=== PATIENT | female | born 1935 | race Caucasian/White ===

== ENCOUNTER 2019-09-09 07:15 | Inpatient (IN) | payer MEDICARE, SELFPAY ==
[2019-09-09] VITALS (29 sets, daily range): BP systolic 99–132; BP diastolic 52–74; PULSE 65–100; RESP 18–37; TEMP 36.4–37.1; O2SAT 69–100; BMI 17.6
--- NOTE | ~2019-09-09 | XR_ITS ---
EXAMINATION: XR chest 1V EXAM DATE: 09/09/2019 09:59 INDICATION: Cough, low oxygen saturation. TECHNIQUE: Frontal and lateral projections of the chest obtained and reviewed. There is no prior yanet dy for comparison. FINDINGS: There is cardiomegaly and pulmonary vascular congestion. Moderate hyperinflation. Right si xth rib fracture laterally, age indeterminate. No confluent consolidation, pneumothorax or pleural ef fusion suspected. The bones are osteopenic. There are bony degenerative changes. Significant thoraco lumbar scoliosis. IMPRESSION: 1. Cardiomegaly, congestion. 2. Moderate hyperinflation. 3. Age-indeterminate right sixth rib fracture. Reviewed, dictated and finalized at location B. CAL INSTRUMENT MAKER OR REPAIRER
--- NOTE | ~2019-09-09 | CT_ITS ---
EXAMINATION: CT brain wo con EXAM DATE: 09/09/2019 09:57 INDICATION: Confusion, general weakness. TECHNIQUE: Spiral CT of the head was performed without contrast. Axial, coronal and sagittal images were reviewed. The dose-length product (DLP) for this examination was 681.00 mGy-cm. The exposure w as tailored according to patient size, and iterative reconstruction (ASIR) was used as additional dos e reduction technique. There is no prior study for comparison. FINDINGS: There is no acute intraparenchymal hemorrhage. No evidence of intraparenchymal brain mass lesion. No evidence of acute infarction. Please note that initial head CT has limited sensitivity f or small or acute infarctions. There is moderate periventricular and subcortical hypodensity, nonspec ific but probably related to small vessel ischemic disease. There is mild prominence of the sulci a nd ventricles related to cerebral atrophy. There is intracranial carotid arteriosclerosis. There a re no extra-axial collections. There is no mass effect or midline shift. Patient has had bilateral ocular lens surgery. Soft tissue is unremarkable. Small amount of fluid in the left maxillary sinus and mild to moderate ethmoid mucoperiosteal thicken ing. Mastoid air cells are well-aerated. IMPRESSION: 1. No acute intracranial findings. 2. Chronic age related findings. Reviewed, dictated and finalized at location B. MAKER
--- NOTE | 2019-09-09 07:36 | ECG_ITS ---
Measurements Intervals [place] Rate: 85 P: 95 VT: 223 QRS: 69 QRSD: 95 T: 68 QT: 355 QTc: 423 Interpretive Statements SINUS RHYTHM WITH FIRST DEGREE AV BLOCK LOW QRS VOLTAGE IN LIMB LEADS ANTEROSEPTAL INFARCT, AGE INDETERMINATE BASELINE ARTIFACT- I, III, AVL, AVF, V2, V5 ABNORMAL ECG Electronically Signed On 09-09-2019 7:59:44 SWABBER by Rashad Hoyos D.O.
--- NOTE | 2019-09-09 07:41 | ED.GENADULT ---
HPI - General Adult General Chief complaint: Weakness Stated complaint: Weakness Time Seen by Provider: 09/09/19 07:41 Source: patient, family and EMS Mode of arrival: EMS Limitations: clinical condition History of Present Illness HPI narrative: Patient is an 84-year-old female who presents for evaluation of cough and dehydration. Patient is currently alert and oriented to person, place, to time. Patient's research project manager feels like she is more confused than normal. Patient denies any pain in the ER. Patient has had a productive cough yesterday, has a decreased oral intake per research project manager. States that she has a history of COPD, and has had a little bit of shortness of breath, although patient denies this in the room. Patient has not had any fever. No vomiting. No diarrhea. Patient denies any abdominal pain, no dysuria. Patient has had increased weakness, difficulty with ambulation more than normal. Related Data Home Medications Medication Instructions Recorded Confirmed alendronate 70 mg tablet 70 mg PO WEEKLY 08/14/19 bimatoprost 0.01 % eye drops 1 drop EACH EYE QPM 08/14/19 budesonide 0.5 mg/2 mL suspension 0.5 mg INHALATION BID ml 08/14/19 for nebulization cholecalciferol (vitamin D3) 2,000 2,000 unit PO DAILY 08/14/19 unit tablet ipratropium bromide 0.02 % 2.5 ml INHALATION BID ml 08/14/19 solution for inhalation prednisone 10 mg tablet 20 mg PO .2xweek tablet 08/14/19 Allergies Allergy/AdvReac Type Severity Reaction Status Date / Time No Known Allergies Allergy Unverified 09/09/19 07:32 Review of Systems Review of Systems: Narrative: CONSTITUTIONAL: Denies fever, chills, or sweats. EYES: Denies visual changes, redness, or discharge. ENT: Denies rhinorrhea, reports some congestion, denies sore throat, or otalgia. CARDIOVASCULAR: Denies chest pain, palpitations, or edema. RESPIRATORY: Reports cough, patient denies shortness of breath GASTROINTESTINAL: Denies abdominal pain, nausea, vomiting, or diarrhea. GENITOURINARY: Denies dysuria or hematuria. SKIN: Denies rash or itching. MUSCULOSKELETAL: Denies back pain, joint pain, or myalgia. NEUROLOGIC: Denies headache, numbness, reports some generalized weakness PSYCHIATRIC: Patient's research project manager states she has been more anxious than normal [facility] Past Medical History Medical History Anxiety Colon cancer COPD (chronic obstructive pulmonary disease) Depression High cholesterol Osteoporosis Surgical History Surgical History History of colon surgery Family History Family History (Updated 08/14/19 @ 11:40 by Joleen Whitt [facility]) Mother Cerebrovascular accident Father Heart disease Social History Social History Smoking status: Former smoker Alcohol intake: never Gender identity (if verbalized by the patient): Female Exam Narrative: Exam Narrative: GENERAL: Awake alert, thin, malnourished. HEAD: Normocephalic, atraumatic. EYES: PERRLA and EOMI. ENT: Nares clear, no rhinorrhea or epistaxis. Mucous membranes dry NECK: Supple. CHEST: Coarse bilaterally, decreased aeration, slight wheezing appreciated on the left, tachypneic, moderate respiratory distress HEART: Regular rate and rhythm. No murmur heard. Normal peripheral pulses. ABDOMEN: Scaphoid, nontender, nondistended, normal active bowel sounds. EXTREMITIES: Normal range of motion. No edema. SKIN: Warm, dry, no rash. NEURO: No focal deficits. Alert and oriented x3, EOMs intact without nystagmus. No facial droop/asymmetry noted bilaterally. Grimace intact. Intact sensation in face. Hearing intact bilaterally. Shoulder shrug intact. Strength 5/5 bilateral upper extremities. Strength 5/5 bilateral lower extremities. Reflexes 2+ patellar. Ambulatory exam deferred. Course Vital Signs Vital signs: Vital Signs [place]
[2019-09-09 08:18] LABS: Basophils Percent Auto 0.6 % (0.2-1.2); Hematocrit 36.9 % (37.0-47.0); Hemoglobin 10.6 g/dL (12.0-15.0); Immature Granulocyte Absolute 0.02 K/mm3 (0.00-0.031); Immature Granulocyte Percent A 0.4 % (0-0.5); Lymphocytes Absolute Auto 0.44 K/mm3 (0.9-3.2); Lymphocytes Percent Auto 9.3 % (18.3-44.2); Mean Corpuscular HGB Conc 28.7 g/dl (32-36); Mean Corpuscular Hemoglobin 28.8 pg (26-34); Mean Corpuscular Volume 100.3 fl (80-100); Mean Platelet Volume 9.4 fl (7.4-10.4); Monocytes Absolute Auto 0.4 K/mm3 (0.1-0.6); Monocytes Percent Auto 7.4 % (2.6-8.5); Neutrophils Absolute Auto 3.9 K/mm3 (1.3-6.7); Neutrophils Percent Auto 82.3 % (45.5-73.1); Platelet Count Result 143 k/mm3 (150-375); Red Blood Count 3.68 M/mm3 (4.2-5.4); Red Cell Distribution Width 13.6 % (11.5-14.5); White Blood Count 4.7 K/mm3 (4.5-10.0)
[2019-09-09] MEDS: ALBUTEROL SULFATE NEB 2.5 MG/0.5 ML INH 5 MG INHALATION ×3 (08:20→20:46)
[2019-09-09] MEDS: IPRATROPIUM BR 0.02% INH SOLN 0.5 MG/2.5 ML VIAL 1 MG INHALATION (08:20)
[2019-09-09] MEDS: SODIUM CHLORIDE 0.9% IV 1,000 ML 999 ML IV CONT (08:25)
[2019-09-09 08:30] LABS: Prothrombin Time 12.7 Seconds (11.1-14.7)
[2019-09-09 08:32] LABS: Alveolar/Arterial O2 Gradient 15.9 mmHg; Base Excess ABG 6.8 mEq/l (+/-2.0); Carboxyhemoglobin 0.3 % THb (0-2.0); Fractional Inspired Oxygen 32 %; HCO3 ABG 34.6 mEq/l (22.0-26.0); Oxygen Content ABG 15.3 %vol (16.0-22.0); Oxygen Saturation ABG 98.4 % (95.0-100.0); Oxyhemoglobin 97.4 % THb (90.0-100.0); PO2 ABG 133.2 mmHg (80.0-100.0); PO2 FiO2 Ratio Arterial Blood 4.16 %; Reduced Hemoglobin 2.3 %THb (0-5.0); pH ABG 7.327 (7.350-7.450)
[2019-09-09 08:34] LABS: Device NASAL CANNULA; Modified Allen's Test Pass; PCO2 ABG 67.6 mmHg (35.0-45.0); Site Drawn RIGHT RADIAL
[2019-09-09 08:41] LABS: Blood Urea Nitrogen 31 mg/dL (7-17); Calcium 9.4 mg/dL (8.4-10.2); Carbon Dioxide 39 mmol/L (22-30); Chloride 101 mmol/L (98-107); Estimated CRCL calculation 44 ml/min; Estimated Glomerular Filt Rate > 60; Glucose 134 mg/dL (65-105); Potassium 4.5 mmol/L (3.4-5.0); Sodium 145 mmol/L (137-145)
[2019-09-09] MEDS: methylPREDNISolone SOD SUCC 125 MG VIAL IV PUSH (08:52)
[2019-09-09 08:55] LABS: Troponin I 0.125 ng/mL (0.000-0.034)
[2019-09-09 09:57] LABS: Add Urine Microscopic? YES; Appearance Urine Clear (Clear); Bilirubin Urine Negative (Negative); Blood Urine Negative (Negative); Color Urine Yellow (Yellow); Glucose Urine UA 1+ mg/dL (Negative); Ketones Urine Negative (Negative); Leukocyte Esterase Ur Negative LEU/UL (Negative); Mucus Urine Moderate /lpf; Nitrate Urine Negative (Negative); Protein Urine 1+ mg/dL (Negative); Squamous Epithelial Cell Urine Rare /hpf (Few); Urobilinogen Urine Negative mg/dL (<2.0); WBC Urine 0-3 /hpf
[2019-09-09 10:31] LABS: NT Pro B Type Natriuretic Pept 3050 PG/ML (5-100)
[2019-09-09 10:48] LABS: Alveolar/Arterial O2 Gradient 63.9 mmHg; Base Excess ABG 5.4 mEq/l (+/-2.0); Carboxyhemoglobin 0.2 % THb (0-2.0); Fractional Inspired Oxygen 30 %; Methemoglobin ABG 0.1 %THb (0-1.5); Oxygen Content ABG 14.5 %vol (16.0-22.0); Oxygen Saturation ABG 93.1 % (95.0-100.0); Oxyhemoglobin 92.6 % THb (90.0-100.0); PO2 ABG 73.2 mmHg (80.0-100.0); PO2 FiO2 Ratio Arterial Blood 2.44 %; Reduced Hemoglobin 7.1 %THb (0-5.0); Total Hemoglobin 11.1 g/dL (12.0-18.0); pH ABG 7.321 (7.350-7.450)
[2019-09-09 10:49] LABS: Device NON-INVASIVE VENT; Modified Allen's Test Pass; Non-Invasive Expiratory Pressure 5 CMH2O; Non-Invasive Inspiratory Pressure 10 CMH2O; Non-Invasive Vent Rate 4 /MIN; PCO2 ABG 65.4 mmHg (35.0-45.0); Site Drawn RIGHT RADIAL
--- NOTE | 2019-09-09 11:42 | ADMGEN ---
This patient, Liseth Linder, was admitted to IMU Room 200-01. Patient/family oriented to hospital policies and general routines including ID bracelet, bed and alarms, visiting hours, pain management, procedures, bathroom and other care routines, personal items, smoking policy, room service/diet, and visiting hours. Valuables list has been completed. Information on how to activate the Rapid Response Team has been discussed. Patient/Family are encouraged to report perceived risks to care and to ask questions if they do not understand what they are told or what they should do.
[2019-09-09] MEDS: methylPREDNISolone SOD SUCC 125 MG VIAL 60 MG IV PUSH ×2 (13:28→17:23)
[2019-09-09] MEDS: IPRATROPIUM BR 0.02% INH SOLN 0.5 MG/2.5 ML VIAL INHALATION ×2 (14:14→20:46)
[2019-09-09 14:27] LABS: Troponin I 0.114 ng/mL (0.000-0.034)
--- NOTE | 2019-09-09 17:00 | PM.IMHP ---
H&P: HPI History of Present Illness Chief complaint: Weak, short of breath. Narrative: Liseth Linder is a very pleasant 84 year old female with chronic respiratory failure on 3 liters nasal cannula, COPD, and myasthenia gravis who presented to the emergency department earlier this morning via EMS from home for evaluation of weakness and shortness of breath. At baseline she gets short of breath when up ambulating around the home, however has been far worse over the past couple of days. She has also become progressive may more weak, has had decreased oral intake, and has had a slight cough which is not really productive. Daughters have also noted that she seemed a bit confused over the last couple of days. She denies drooping eyelids, dysphagia, and dysarthria. She has not had fever, chills, or sweats. No chest pain, pleuritic pain, or edema. She has not had nausea or vomiting. No fever, chills, or sweats. No sinus congestion, rhinorrhea, otalgia, or odynophagia. Review of Systems Review of Systems: All systems reviewed & are unremarkable except as noted in HPI and below PMFSH Past Medical History Medical History (Updated 09/09/19 @ 23:10 by Rosmery Samuel PA-C) Anxiety Chronic respiratory failure with hypoxia Colon cancer COPD (chronic obstructive pulmonary disease) Depression High cholesterol Myasthenia gravis Osteoporosis Surgical History Surgical History (Updated 09/09/19 @ 23:05 by Rosmery Samuel PA-C) History of appendectomy History of cholecystectomy History of colon surgery For colon cancer. Family History Family History Mother Cerebrovascular accident Father Heart disease Social History Social History (Updated 09/09/19 @ 23:06 by Rosmery Samuel PA-C) Social History: The patient is . She lives in her own home in [place]. She has 4 children. One of her daughters frequently stays at home with her as she gets anxious at nighttime. A cushion maker does, help throughout the day. She smoked < half pack of cigarettes for several years in her teens and 20s. No alcohol or drug use. Her daughter Mary is her healthcare power of party plan sales agent. The patient wishes to be a full code. Smoking status: Former smoker Alcohol intake: never Substance use: never Gender identity (if verbalized by the patient): Female Spiritual care concerns: No Agree to blood products: Yes Meds Home Medications and Allergies Home Medications Medication Instructions Recorded Confirmed Type alendronate 70 mg tablet 70 mg PO WEEKLY 08/14/19 09/09/19 History bimatoprost 0.01 % eye drops 1 drop EACH EYE QPM 08/14/19 09/09/19 History budesonide 0.5 mg/2 mL suspension 0.5 mg INHALATION BID ml 08/14/19 09/09/19 History for nebulization cholecalciferol (vitamin D3) 2,000 2,000 unit PO DAILY 08/14/19 09/09/19 History unit tablet ipratropium bromide 0.02 % 2.5 ml INHALATION BID ml 08/14/19 09/09/19 History solution for inhalation prednisone 10 mg tablet 20 mg PO .2xweek tablet 08/14/19 09/09/19 History rosuvastatin 20 mg tablet 20 mg PO DAILY #90 tablet 08/14/19 09/09/19 Rx sertraline 25 mg PO HS 09/09/19 09/09/19 History Allergies Allergy/AdvReac Type Severity Reaction Status Date / Time No Known Allergies Allergy Unverified 09/09/19 07:32 Vital Signs Vital Signs - 24 hr 09/09/19 07:20 09/09/19 07:30 09/09/19 07:45 Temperature 98.7 F Pulse Rate 84 81 75 Respiratory Rate 37 H 33 H 34 H Blood Pressure 130/74 132/73 131/72 Pulse Oximetry 100 100 100 09/09/19 08:29 09/09/19 08:30 09/09/19 08:45 Temperature Pulse Rate 68 69 68 Respiratory Rate 18 28 H 29 H Blood Pressure 126/72 Pulse Oximetry 99 09/09/19 09:31 09/09/19 09:46 09/09/19 10:46 Temperature Pulse Rate 70 73 70 Respiratory Rate 31 H 22 H 36 H Blood Pressure 116/69 120/62 119/64 Pulse Oximetry 95 96 09/09/19 10
[2019-09-09 17:45] LABS: Troponin I 0.084 ng/mL (0.000-0.034)
[2019-09-09] MEDS: SERTRALINE HCL 25 MG TABLET PO (20:28)
[2019-09-09] MEDS: LATANOPROST 0.005% OP SOLN 2.5 ML BTL 1 DROP EACH EYE (20:28)
[2019-09-09 21:10] LABS: Alveolar/Arterial O2 Gradient 42.2 mmHg; Base Excess ABG 7.1 mEq/l (+/-2.0); Carboxyhemoglobin 0.3 % THb (0-2.0); Fractional Inspired Oxygen 30 %; HCO3 ABG 34.5 mEq/l (22.0-26.0); Methemoglobin ABG 0.4 %THb (0-1.5); Oxygen Content ABG 14.7 %vol (16.0-22.0); Oxygen Saturation ABG 96.7 % (95.0-100.0); Oxyhemoglobin 95.9 % THb (90.0-100.0); PO2 ABG 95.2 mmHg (80.0-100.0); PO2 FiO2 Ratio Arterial Blood 3.17 %; Reduced Hemoglobin 3.4 %THb (0-5.0); Total Hemoglobin 10.8 g/dL (12.0-18.0); pH ABG 7.342 (7.350-7.450)
[2019-09-09 21:12] LABS: Device NON-INVASIVE VENT; Modified Allen's Test Pass; PCO2 ABG 65.1 mmHg (35.0-45.0); Site Drawn LEFT RADIAL
[2019-09-09 21:13] LABS: Non-Invasive Expiratory Pressure 5 CMH2O; Non-Invasive Inspiratory Pressure 12 CMH2O; Non-Invasive Vent Rate 4 /MIN
[2019-09-10] VITALS (26 sets, daily range): BP systolic 118–132; BP diastolic 60–79; PULSE 65–103; RESP 14–24; TEMP 36.6–37.3; O2SAT 94–100; BMI 18.5
[2019-09-10] MEDS: ALBUTEROL SULFATE NEB 2.5 MG/0.5 ML INH 5 MG INHALATION ×4 (01:51→19:50)
[2019-09-10] MEDS: IPRATROPIUM BR 0.02% INH SOLN 0.5 MG/2.5 ML VIAL INHALATION ×4 (01:51→19:50)
[2019-09-10 04:54] LABS: Hematocrit 33.1 % (37.0-47.0); Hemoglobin 9.7 g/dL (12.0-15.0); Mean Corpuscular HGB Conc 29.3 g/dl (32-36); Mean Corpuscular Volume 99.1 fl (80-100); Mean Platelet Volume 10.5 fl (7.4-10.4); Platelet Count Result 121 k/mm3 (150-375); Red Blood Count 3.34 M/mm3 (4.2-5.4); Red Cell Distribution Width 13.6 % (11.5-14.5); White Blood Count 4.2 K/mm3 (4.5-10.0)
[2019-09-10 05:09] LABS: Blood Urea Nitrogen 27 mg/dL (7-17); Calcium 8.7 mg/dL (8.4-10.2); Carbon Dioxide 33 mmol/L (22-30); Chloride 100 mmol/L (98-107); Estimated CRCL calculation 54 ml/min; Estimated Glomerular Filt Rate > 60; Glucose 147 mg/dL (65-105); Potassium 3.6 mmol/L (3.4-5.0); Sodium 139 mmol/L (137-145)
[2019-09-10] MEDS: BUDESONIDE RESPULE NEB 0.5 MG/2 ML AMP INHALATION ×2 (08:49→19:50)
[2019-09-10] MEDS: predniSONE 20 MG TABLET 40 MG PO (10:12)
[2019-09-10] MEDS: ROSUVASTATIN 10 MG TABLET 20 MG PO (10:13)
[2019-09-10] MEDS: CHOLECALCIFEROL 1,000 UNIT TABLET 2000 UNITS PO (10:13)
--- NOTE | 2019-09-10 14:48 | PCNSR ---
On 09/10/19, the student, Belia Perez, provided care and completed [facility] documentation on this patient. I have reviewed the student's documentation and agree with the findings.
--- NOTE | 2019-09-10 15:29 | PM.IMPN ---
Progress Note: A&P Assessment and Plan (1) Acute on chronic respiratory failure with hypoxia and hypercapnia: Code(s): J96.21 - Acute and chronic respiratory failure with hypoxia; J96.22 - Acute and chronic respiratory failure with hypercapnia Status: Acute Assessment and Plan: Secondary to COPD exacerbation. Cardiomegaly and congestion also noted on imaging also noted. improvement in pCO2.with updrafts, steroids, and bipap Will continue with BiPAP at nighttime. Dr. Leslie consulted for further recommendations, as she may need PAP therapy all the time all sleeping. (2) COPD (chronic obstructive pulmonary disease): Qualifiers: COPD type: COPD with acute exacerbation Qualified Code(s): J44.1 - Chronic obstructive pulmonary disease with (acute) exacerbation Code(s): J44.9 - Chronic obstructive pulmonary disease, unspecified Status: Acute Assessment and Plan: Schedule nebulizers q.6 hours. started daily prednisone 40 qd. No indication for antibiotics. (3) Cardiomegaly: Code(s): I51.7 - Cardiomegaly Status: Acute Assessment and Plan: Echocardiogram has been done and results pending to check for Pul htn and r/o cardiac source of sob (4) Elevated troponin: Code(s): R79.89 - Other specified abnormal findings of blood chemistry Status: Acute Assessment and Plan: Likely due to respiratory failure. She is having no chest pain whatsoever. As above, echocardiogram has been ordered for evaluation and will also assess any wall motion abnormalities (5) Right rib fracture: Code(s): S22.31XA - Fracture of one rib, right side, initial encounter for closed fracture Status: Acute Assessment and Plan: Age indeterminate right 6th rib fracture. 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 (6) Myasthenia gravis: Code(s): G70.00 - Myasthenia gravis without (acute) exacerbation Status: Acute Assessment and Plan: No evidence of acute issue. Will need to monitor closely and increased steroid should help (7) DVT prophylaxis: Code(s): Z29.9 - Encounter for prophylactic measures, unspecified Status: Acute Assessment and Plan: lovenox Subjective Date/time seen: 09/10/19 15:29 Interval history: Date of visit 09/10/2019. A 4-year-old white female with COPD admitted with exacerbation and respiratory failure. Been coughing some nonproductive no fever chills or chest pain Feels better this a.m. after BiPAP, steroids, and updrafts Exam Narrative: Exam Narrative: General: Thin frail elderly female seems more comfortable this am. HEENT: Normocephalic, atraumatic. PERRL, EOMI. Sclerae anicteric. Neck: Supple. No JVD. Chest: Respirations are nonlabored. She is speaking in full sentences and comfortable Respiratory: Lung sounds are diminished with faint expiratory wheezing. Cardiovascular: Regular rate and rhythm with S1-S2. Gastrointestinal: Abdomen is soft, flat, nontender, and nondistended with positive bowel sounds. Skin: Warm and dry. No rash or lesions on limited exam. Extremities: No cyanosis, clubbing, or edema. Radial and pedal pulses intact. Neurological: Alert. Cranial nerves 2-12 are grossly intact. No gross focal deficits to casual conversation. Psychiatric: Pleasant and cooperative with normal mood and affect. Judgment and insight intact. Objective Data Vital Signs Vital Signs: Vital Signs - 24 hr 09/09/19 16:00 09/09/19 17:03 09/09/19 18:00 Temperature 36.7 C Pulse Rate 90 74 89 Respiratory Rate 28 H Blood Pressure 116/59 L Pulse Oximetry 98 09/09/19 18:25 09/09/19 19:52 09/09/19 20:00 Temperature 36.5 C Pulse Rate 88 75 75 Respiratory Rate 27 H 22 H Blood Pressure 124/64 Pulse Oximetry 94 98 09/09/19 20:45 09/09/19 20:46
--- NOTE | 2019-09-10 18:06 | PC.NURSE ---
1230 RN was called to room because caregiver had concern with pt being anxious. Pt recently had seen PCP and been prescribed Lexapro. Caregiver and pt didn't feel that Lexapro was appropriate for the anxiety. Caregiver ask RN if we could call the PCP office and tell that about the pts anxiety and discuss with them about prescribing pt different medication. RN advised pt and caregiver that the PCP would have to be the one to make the decison on what medications would be appropriate to prescribe for pt. Caregiver wanted Hospitalist to prescribe and change home medication. Caregiver was upset with RN when RN would not call PCP. notified.
--- NOTE | 2019-09-10 18:11 | PC.NURSE ---
1600 Bed alarm was alarming and when entering the room pts dwain was very upset and was yelling at RN about the bed alarm. He wanted to know why the alarm was going off just because he was only trying to get her up to use the restroom. RN advised pt that staff only needed to get pt up for safety reasons and the bed alarm was a safety measure to keep the pt from unknowingly getting out of bed and transferring to bathroom without staff assistance. Dwain was so upset that he slammed the call light in the bed and sat on the couch. While RN was helping pt in the restroom, dwain asked if the pts meals were preordered because she had taco salad and she didn't like taco salad. RN went over the menu and the hours of service for ordering meals with the dwain. Pt could not recall who had called in her meal.
--- NOTE | 2019-09-10 18:16 | PC.NURSE ---
1805 Bed alarm was going off in pt room. Pt was just shifting her weight in the bed. Pts daughter and grandson were bedside at the time and the pts daughter stated that she seemed nervous and confused. RN discussed with family that pt had been forgetful which was her baseline from what had been discussed with adobe architect previously in the day. Also discussed being out of normal environment can cause more than normal confusion and nervousness. The pt had stated that she was anxious because she knew she was SOB at times and it scared her. And the weather scared her to think about the snow.
[2019-09-10] MEDS: LATANOPROST 0.005% OP SOLN 2.5 ML BTL 1 DROP EACH EYE (19:00)
--- NOTE | 2019-09-10 19:51 | PM.PNPUL ---
Subjective Date/time seen: 09/10/19 19:51 Thank you for the consultation. Please see dictation#[id number]. A/P Acute on chronic resp failure due to COPD and 30 years of myasthenia gravis with muscle weakness Chronic O2 use 10+ years remote tobacco use Plan: NPPV for use at home with sleep and as needed in the day for shortness of breath; has failed BiPAP with persistent respiratory acidosis despite using this since admission. Cornet valve to assist with secretions clearance Continue therapy for COPD; uses nebulizer at home. Wean O2. She is 98% on 3 L/min, can tolerate less. Get old records from her pulmonary doctor, as she wants to stay at [facility] for post-discharge care in our pulmonary clinic due to insurance changes. Objective Data Vital Signs Vital Signs: Vital Signs - 24 hr 09/09/19 19:52 09/09/19 20:00 09/09/19 20:45 Temperature 36.5 C Pulse Rate 75 75 87 Respiratory Rate 22 H 18 Blood Pressure 124/64 Pulse Oximetry 98 09/09/19 20:46 09/09/19 20:55 09/09/19 22:00 Temperature Pulse Rate 88 87 72 Respiratory Rate 18 20 Blood Pressure Pulse Oximetry 98 09/09/19 23:52 09/10/19 00:00 09/10/19 00:07 Temperature 36.6 C Pulse Rate 65 71 90 Respiratory Rate 24 H 19 Blood Pressure 120/52 L Pulse Oximetry 100 97 09/10/19 01:51 09/10/19 02:00 09/10/19 02:02 Temperature Pulse Rate 91 71 86 Respiratory Rate 21 H 21 H Blood Pressure Pulse Oximetry 98 09/10/19 04:00 09/10/19 05:42 09/10/19 06:00 Temperature 36.6 C Pulse Rate 65 96 66 Respiratory Rate 14 20 Blood Pressure 118/60 Pulse Oximetry 98 97 09/10/19 08:00 09/10/19 08:40 09/10/19 08:49 Temperature 36.7 C Pulse Rate 99 89 88 Respiratory Rate 16 20 20 Blood Pressure 131/62 Pulse Oximetry 99 09/10/19 08:51 09/10/19 10:00 09/10/19 12:00 Temperature 37.3 C Pulse Rate 103 H 92 Respiratory Rate 18 Blood Pressure 129/62 Pulse Oximetry 94 100 09/10/19 14:00 09/10/19 14:20 09/10/19 15:03 Temperature Pulse Rate 82 100 101 H Respiratory Rate 20 20 Blood Pressure Pulse Oximetry 09/10/19 16:00 09/10/19 18:00 09/10/19 19:24 Temperature 37.2 C 37.0 C Pulse Rate 102 H 100 99 Respiratory Rate 20 18 Blood Pressure 129/79 132/60 Pulse Oximetry 99 98 Intake/Output Intake/Output: Intake & Output 09/07/19 09/08/19 09/09/19 09/10/19 23:59 23:59 23:59 23:59 Intake Total 1680 1105 Output Total 150 1100 Balance 1530 5 Meds/Results Medications: Active Medications Generic Name Dose Route Start Last Admin Trade Name Freq PRN Reason Stop Dose Admin Acetaminophen 650 mg 09/09/19 10:47 Tylenol Tablet PO Q4H PRN Mild Pain (1-3) or Fever Albuterol 5 mg 09/09/19 14:00 09/10/19 14:25 Albuterol Sulf Neb 2.5mg/0.5ml INHALATION 5 mg Q6HRT SURYA Administration Budesonide 0.5 mg 09/10/19 09:00 09/10/19 08:49 Pulmicort Respule Neb INHALATION 0.5 mg BID SURYA Administration Enoxaparin Sodium 40 mg 09/10/19 21:00 Lovenox SUB-Q HS SURYA Ipratropium Fabius 0.5 mg 09/09/19 14:00 09/10/19 14:25 Atrovent Neb INHALATION 0.5 mg Q6HRT SURYA Administration Latanoprost 1 drop 09/09/19 18:00 09/10/19 19:00 Xalatan EACH EYE 1 drop QPM SURYA Administration Ondansetron HCl 4 mg 09/09/19 10:47 Zofran Inj IV PUSH Q4H PRN Nausea Prednisone 40 mg 09/10/19 08:00 09/10/19 10:12 Prednisone PO 09/14/19 08:01 40 mg DAILY@0800 SURYA Administration Rosuvastatin Calcium 20 mg 09/10/19 09:00 09/10/19 10:13 Crestor PO 20 mg DAILY SURYA Administration Sertraline HCl 25 mg 09/09/19 21:00 09/09/19 20:28 Zoloft PO 25 mg HS SURYA Administration Vitamin D 2,000 unit 09/10/19 09:00 09/10/19 10:13 Vitamin D PO 2,000 unit DAILY SURYA Administration Radiology Results: ITS Impressions Head CT 09/09/19 10:01 IMPRESSION: 1. No acute intracranial findings. 2. Chr
[2019-09-10] MEDS: ENOXAPARIN 40 MG/0.4 ML SYRINGE SUB-Q (20:44)
[2019-09-10] MEDS: SERTRALINE HCL 25 MG TABLET PO (20:44)
--- NOTE | 2019-09-10 23:16 | ECHO_ITS ---
Patient Info Name: Liseth Linder Age: 84 years : 1935 Gender: Female Ht: 59 in Wt: 90 lbs BSA: 1.30 m2 HR: 100 bpm BP: 118 / 60 mmHg Heart Rhythm: Sinus Rhythm Technical Quality: Good Exam Date: 09/10/2019 11:48 AM Exam Location: [facility] Patient Status: Inpatient Admit Date: 09/09/2019 Staff Ordering Physician: Rosmery Samuel PA-C Devil Dog: Jeffrey Ponce RDCS Attending Provider: Josefina Moreira MD Exam Type: CA echo doppler color flow Study Info Indications I51.7 - Cardiomegaly Complete two-dimensional, color flow and Doppler transthoracic echocardiogram is performed. Strain analysis performed. History/Risk Factors SOB, cardiomegaly, COPD, elevated trops. Summary 1. Left ventricular chamber dimension is normal. 2. Ventricular septum is sigmoid shaped. 3. Left ventricular systolic function is normal, estimated at 60-65%. 4. The left ventricular diastolic function is grade I diastolic dysfunction. 5. E/e' 12 is mildly elevated. 6. Global longitudinal strain is normal at -19.3%. 7. Left atrial chamber dimension is mildly enlarged. 8. There is mild mitral valve regurgitation. 9. There is trace tricuspid valve regurgitation. 10. No pulmonary hypertension, estimated pulmonary arterial systolic pressure is 36 mmHg. 11. Dilated inferior vena cava with >50% collapse upon inspiration consistent with elevated right atrial pressure, 10 mmHg. Left Ventricle E/e' 12 is mildly elevated. Global longitudinal strain is normal at -19.3%. Ventricular septum is sigmoid shaped. Left ventricular chamber dimension is normal. Left ventricular systolic function is normal, estimated at 60-65%. The left ventricular diastolic function is grade I diastolic dysfunction. Right Ventricle Right ventricular chamber dimension is normal. Right ventricular systolic function is normal. Left Atria Left atrial chamber dimension is mildly enlarged. Right Atria Right atrial chamber dimension is normal. Aortic Valve The aortic valve is trileaflet. There is no aortic valve stenosis. There is no aortic valve regurgitation. Pulmonic Valve There is no pulmonic regurgitation. Mitral Valve There is no mitral valve stenosis. There is mild mitral valve regurgitation. Tricuspid Valve There is trace tricuspid valve regurgitation. No pulmonary hypertension, estimated pulmonary arterial systolic pressure is 36 mmHg. Pericardium/Pleural There is no pericardial effusion. Inferior Vena Cava Dilated inferior vena cava with >50% collapse upon inspiration consistent with elevated right atrial pressure, 10 mmHg. Aorta The aortic root size at the sinus of Valsalva is normal. Left Ventricular Outflow Tract Name Value Normal LVOT 2D LVOT Diameter 2.1 cm LVOT Doppler LVOT Peak Gradient 6 mmHg LVOT Mean Gradient 3 mmHg LVOT VTI 21 cm LVOT VTI/AV VTI Ratio 0.6 LVOT Stroke Volume 72 ml LVOT CO 6.
[2019-09-11] VITALS (18 sets, daily range): BP systolic 129–175; BP diastolic 60–79; PULSE 62–99; RESP 20–24; TEMP 36.2–36.8; O2SAT 93–100
--- NOTE | 2019-09-11 00:26 | CONS_ITS ---
DATE OF CONSULTATION: 09/10/2019 REASON FOR THE CONSULTATION: Rosmery Samuel P.A.-C, consulted me to see the patient for [id number] respiratory failure. HISTORY: [facility] 84[facility], who has had a long history of COPD, has been on oxygen at least 10 years. She was diagnosed with myasthenia gravis about 30 years ago, is followed at the [facility] [place]. Her disease process has been stable over the years. She previously saw Dr. Collazo for Pulmonary, but he moved from this area to [place]. The patient's insurance has changed. She has been going to [facility] to see the Pulmonary group there. She has not had recurrent pneumonias or admission to the hospital for breathing problems. Her daughter is here and she helps to provide the history. The patient's birthday was [birth year]. There is a birthday celebration. Over the next few days, the patient began acting unlike herself. She slept in bed with her daughter because she was scared to be alone. Her breathing was shallow. She had increased anxiety. Her gait became less stable. She has had decreased oral intake and a weak nonproductive cough. Her normal symptoms for myasthenia include droopy eyelids, facial weakness, fatigue, and difficulty swallowing or talking. This has not really been a problem for her. When she came to the hospital, initial blood gas showed a pH of 7.327, pCO2 of 67.6, pO2 of 133.2, HC03 of 34.6, and this was on 3 L/minute. The patient was placed on BiPAP. The most recent blood gas also on September 09 was very similar, pH 7.34, pCO2 of 65.1, pO2 of 95.2, HC03 of 34.5 on BiPAP 12/5, oxygen 30%. Chest x-ray on September 09 shows cardiomegaly, moderate hyperinflation, old right 6th rib fracture. It is actually age-indeterminate. She had 3 minimally elevated troponin 0.125, 0.114, 0.084. Her proBNP was elevated at 3050. Head CT showed no acute findings. The patient is alert, she does repeat herself very often. She feels that her breathing is almost back to normal. She does wheeze occasionally and it has been worse recently. She does not have history of recurrent pneumonia. No history of asthma. She is up-to-date on her flu shot. She smoked very minimally years ago. She lives in [place] and feels that she got most of her breathing problems from where she lived. She has not had significant secondhand smoke. She has not had a recent fever, chills, difficulty swallowing, nausea, vomiting, or diarrhea. She has not had nasal congestion or sinus tenderness. ALLERGIES: NO KNOWN DRUG ALLERGIES. HOME MEDICATIONS: 1. Alendronate 70 mg weekly. 2. Lumigan eyedrops 1 drop each eye nightly. 3. Nebulized budesonide 0.5 mg b.i.d. 4. Vitamin D3 of 2000 units daily. 5. Ipratropium 2.5 mg nebulized b.i.d. 6. Prednisone 20 mg twice per week for her myasthenia gravis. 7. Rosuvastatin 20 mg a day. 8. Sertraline 25 mg a day. PAST MEDICAL HISTORY: 1. Chronic respiratory failure on oxygen 3 L around the clock. This started about 10 years ago. Initially, she was on 2 or 2-1/2 L. 2. History of colon cancer. 3. COPD. 4. Depression. 5. Myasthenia gravis for 30 years. 6. Hyperlipidemia. 7. Osteoporosis. 8. Anxiety. PAST SURGICAL HISTORY: 1. Appendectomy. 2. Cholecystectomy. 3. Colon resection for cancer. SOCIAL HISTORY: . She was 1 of 8 kids. She has 4 children. 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 She lives at home with her daughter. Shanon is the dermatological surgeon and helps during the daytime. She smoked a half pack per day for several years in her teens and 20s. No alcohol. FAMILY HISTORY: Mother lived to [facility]. She had a stroke. Father had heart disease. The patient's brother of lung cancer in his 70s. REVIEW OF SYSTEMS: Her weight has be
[2019-09-11] MEDS: ALBUTEROL SULFATE NEB 2.5 MG/0.5 ML INH 5 MG INHALATION ×4 (01:23→21:23)
[2019-09-11] MEDS: IPRATROPIUM BR 0.02% INH SOLN 0.5 MG/2.5 ML VIAL INHALATION ×4 (01:24→21:23)
--- NOTE | 2019-09-11 01:30 | PCRCNOTE ---
Patient was extremely anxious and tachypneic with BiPAP on and stated that she couldn't sleep and didn't want to wear it. I removed it to give her the 02:00 breathing treatment and her respiratory rate decreased. She asked that I leave the BiPAP off. I put her back on her 3L NC (home O2 setting). Patient wore BiPAP for approximately 3 hours. She was advised that it may be necessary to wear it again later.
[2019-09-11 05:05] LABS: Basophils Percent Auto 0.2 % (0.2-1.2); Hematocrit 31.9 % (37.0-47.0); Hemoglobin 9.3 g/dL (12.0-15.0); Immature Granulocyte Absolute 0.02 K/mm3 (0.00-0.031); Immature Granulocyte Percent A 0.3 % (0-0.5); Lymphocytes Absolute Auto 0.47 K/mm3 (0.9-3.2); Lymphocytes Percent Auto 7.3 % (18.3-44.2); Mean Corpuscular HGB Conc 29.2 g/dl (32-36); Mean Corpuscular Hemoglobin 28.7 pg (26-34); Mean Corpuscular Volume 98.5 fl (80-100); Mean Platelet Volume 10.2 fl (7.4-10.4); Monocytes Absolute Auto 0.6 K/mm3 (0.1-0.6); Neutrophils Absolute Auto 5.4 K/mm3 (1.3-6.7); Neutrophils Percent Auto 83.2 % (45.5-73.1); Platelet Count Result 151 k/mm3 (150-375); Red Blood Count 3.24 M/mm3 (4.2-5.4); Red Cell Distribution Width 13.7 % (11.5-14.5); White Blood Count 6.4 K/mm3 (4.5-10.0)
[2019-09-11 05:24] LABS: Blood Urea Nitrogen 23 mg/dL (7-17); Calcium 8.7 mg/dL (8.4-10.2); Carbon Dioxide 36 mmol/L (22-30); Chloride 99 mmol/L (98-107); Estimated CRCL calculation 58 ml/min; Estimated Glomerular Filt Rate > 60; Glucose 102 mg/dL (65-105); Potassium 3.6 mmol/L (3.4-5.0); Sodium 139 mmol/L (137-145)
[2019-09-11 05:37] LABS: Iron 17 ug/dL (37-170)
[2019-09-11 05:47] LABS: Percent Iron Saturation 8 % (20-50)
[2019-09-11] MEDS: BUDESONIDE RESPULE NEB 0.5 MG/2 ML AMP INHALATION ×2 (07:40→21:23)
--- NOTE | 2019-09-11 09:10 | PCRCNOTE ---
Pt was on her home oxygen of 3lpm, I titrated pts O2 to 1lpm and sats were 95%. pt walked to the bathroom on 1lpm and desated to the low 80's RN placed pt back on 3lpm to recover and once the pt recovered RN decreased pt to 1lpm. Pt seems to need 3lpm with activity and 1lpm at rest at this time.
[2019-09-11] MEDS: predniSONE 20 MG TABLET 40 MG PO (09:55)
[2019-09-11] MEDS: CHOLECALCIFEROL 1,000 UNIT TABLET 2000 UNITS PO (09:56)
[2019-09-11] MEDS: ROSUVASTATIN 10 MG TABLET 20 MG PO (11:23)
--- NOTE | 2019-09-11 17:13 | PM.IMPN ---
Progress Note: A&P Assessment and Plan (1) Acute on chronic respiratory failure with hypoxia and hypercapnia: Code(s): J96.21 - Acute and chronic respiratory failure with hypoxia; J96.22 - Acute and chronic respiratory failure with hypercapnia Status: Acute Assessment and Plan: Secondary to COPD exacerbation. Cardiomegaly and congestion also noted on imaging also noted. improvement in pCO2.with updrafts, steroids, and bipap Will continue with BiPAP at nighttime. Dr. Leslie consulted and she will arrange for Trilogy unit (2) COPD (chronic obstructive pulmonary disease): Qualifiers: COPD type: COPD with acute exacerbation Qualified Code(s): J44.1 - Chronic obstructive pulmonary disease with (acute) exacerbation Code(s): J44.9 - Chronic obstructive pulmonary disease, unspecified Status: Acute Assessment and Plan: Schedule nebulizers q.6 hours. started daily prednisone 40 qd. and will start taper 1-2 days No indication for antibiotics. (3) Cardiomegaly: Code(s): I51.7 - Cardiomegaly Status: Acute Assessment and Plan: Echocardiogram has been done and no wall motion abnormalities, normal EF, and no pulmonary hypertension (4) Elevated troponin: Code(s): R79.89 - Other specified abnormal findings of blood chemistry Status: Acute Assessment and Plan: Likely due to respiratory failure. She is having no chest pain whatsoever. As above, echocardiogram no wall motion abnormalities (5) Right rib fracture: Code(s): S22.31XA - Fracture of one rib, right side, initial encounter for closed fracture Status: Acute Assessment and Plan: Age indeterminate right 6th rib fracture. 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 (6) Myasthenia gravis: Code(s): G70.00 - Myasthenia gravis without (acute) exacerbation Status: Acute Assessment and Plan: No evidence of acute issue. Will need to monitor closely and increased steroid should help (7) DVT prophylaxis: Code(s): Z29.9 - Encounter for prophylactic measures, unspecified Status: Acute Assessment and Plan: lovenox Subjective Date/time seen: 09/11/19 17:13 Interval history: Date of visit 09/11/2019. A 84-year-old white female with COPD admitted with exacerbation and respiratory failure. Been coughing some nonproductive no fever chills or chest pain Feels better this a.m. after BiPAP, steroids, and updrafts Slept better Exam Narrative: Exam Narrative: General: Thin frail elderly female seems comfortable this am. HEENT: Normocephalic, atraumatic. PERRL, EOMI. Sclerae anicteric. Neck: Supple. No JVD. Chest: Respirations are nonlabored. She is speaking in full sentences and comfortable Respiratory: Lung sounds are diminished with no expiratory wheezing now Cardiovascular: Regular rate and rhythm with S1-S2. Gastrointestinal: Abdomen is soft, flat, nontender, and nondistended with positive bowel sounds. Skin: Warm and dry. No rash or lesions on limited exam. Extremities: No cyanosis, clubbing, or edema. Radial and pedal pulses intact. Neurological: Alert. Cranial nerves 2-12 are grossly intact. No gross focal deficits to casual conversation. Psychiatric: Pleasant and cooperative with normal mood and affect. Judgment and insight intact. Objective Data Vital Signs Vital Signs: Vital Signs - 24 hr 09/10/19 18:00 09/10/19 19:24 09/10/19 19:56 Temperature 37.0 C Pulse Rate 100 99 98 Respiratory Rate 18 20 Blood Pressure 132/60 Pulse Oximetry 98 98 09/10/19 20:00 09/10/19 20:05 09/10/19 22:00 Temperature Pulse Rate 94 100 74 Respiratory Rate 20 Blood Pressure Pulse Oximetry 09/10/19 22:22 09/10/19 23:24 09/11/19 00:00 Temperature 36.6 C Pulse Rate 91 79 76 Respiratory Rate 24 H
[2019-09-11] MEDS: LATANOPROST 0.005% OP SOLN 2.5 ML BTL 1 DROP EACH EYE (17:52)
[2019-09-11] MEDS: ENOXAPARIN 40 MG/0.4 ML SYRINGE SUB-Q (20:31)
[2019-09-11] MEDS: SERTRALINE HCL 25 MG TABLET PO (20:31)
--- NOTE | 2019-09-11 21:42 | PC.NURSE ---
Patient and all patient belongings transferred to room 316-1 on 09/01/2019 at 2120. Report given to Josseline. Patient denies complaints and tolerated transport well.
[2019-09-12] VITALS (13 sets, daily range): BP systolic 130–155; BP diastolic 63–71; PULSE 62–100; RESP 15–24; TEMP 36.7–37.4; O2SAT 90–100
[2019-09-12] MEDS: ALBUTEROL SULFATE NEB 2.5 MG/0.5 ML INH 5 MG INHALATION ×4 (03:16→20:39)
[2019-09-12] MEDS: IPRATROPIUM BR 0.02% INH SOLN 0.5 MG/2.5 ML VIAL INHALATION ×4 (03:16→20:39)
[2019-09-12] MEDS: CHOLECALCIFEROL 1,000 UNIT TABLET 2000 UNITS PO (08:29)
[2019-09-12] MEDS: ROSUVASTATIN 10 MG TABLET 20 MG PO (08:29)
[2019-09-12] MEDS: predniSONE 20 MG TABLET 40 MG PO (08:29)
[2019-09-12] MEDS: BUDESONIDE RESPULE NEB 0.5 MG/2 ML AMP INHALATION ×2 (10:13→20:38)
--- NOTE | 2019-09-12 16:18 | PM.PNPUL ---
Progress Note: A&P Assessment and Plan (1) Acute on chronic respiratory failure with hypoxia and hypercapnia: Code(s): J96.21 - Acute and chronic respiratory failure with hypoxia; J96.22 - Acute and chronic respiratory failure with hypercapnia Status: Acute Assessment and Plan: [id number] hypercapnic hypoxemic respiratory failure due to combination of chronic obstructive pulmonary disease exacerbation and suspected worsening of her myasthenia gravis. The [facility] NPPV has been approved, and she may be able to have this delivered here today. She will wear it tonight, ABG in the am, then go home with it tomorrow. She lives in her home with her daughter, Mary. She can use this nocturnal positive pressure ventilation for nighttime use with all episodes of sleep and during the day as needed for shortness of breath. We will continue her bronchodilator therapy, inhaled corticosteroids, oral prednisone. She did not find bipap comfortable and it helped only a little reducing pCO2. (2) Myasthenia gravis: Code(s): G70.00 - Myasthenia gravis without (acute) exacerbation Status: Acute Assessment and Plan: Myasthenia gravis with neuromuscular weakness. Her primary sites of involvement include eye lid weakness, facial weakness, gait and respiratory muscle weakness. She is followed by [facility] clinic at [place]. (3) COPD (chronic obstructive pulmonary disease): Qualifiers: COPD type: COPD with acute exacerbation Qualified Code(s): J44.1 - Chronic obstructive pulmonary disease with (acute) exacerbation Code(s): J44.9 - Chronic obstructive pulmonary disease, unspecified Status: Acute Assessment and Plan: Chronic obstructive pulmonary disease for many years, currently on nebulized inhaled steroids and bronchodilators at home. TOBACCO: History of remote smoking half pack per day for several years, none since her 20s. (4) Shortness of Breath: Code(s): R06.02 - Shortness of breath Status: Acute Assessment and Plan: Mainly with exertion. Subjective Date/time seen: 09/12/19 16:18 This 84 yo female is seen in follow up for acute on chronic hypercapnic hypoxemia resp failure. She is feeling better today, short of breath at the moment from walking back from the bathroom. Her insurance approved the Trilogy for night time use and in the day as needed. We will plan to have her use it tonight then get ABG in the am. Will be able to go home tomorrow. Linh Gregg is in the room. Review of Systems Review of Systems: Narrative: Overall she is feeling better than she did when she was admitted., All systems reviewed & are unremarkable except as noted in HPI and below Exam Const: General: no acute distress HENMT: Other: decreased hearing Neck: Lymphatic: lymphadenopathy not noted Resp: Auscultation: diminished lung sounds Other: hyperinflated thorax Cardio: Rate: regular rate Rhythm: regular rhythm GI: Auscultation: normal bowel sounds Skin: General skin exam: normal color Extrem: General: no edema Psych: Mental Status: mental status grossly normal Objective Data Vital Signs Vital Signs: Vital Signs - 24 hr 09/11/19 19:43 09/11/19 21:23 09/11/19 21:30 Temperature 36.2 C L 36.7 C Pulse Rate 71 78 78 Respiratory Rate 22 H 20 24 H Blood Pressure 130/64 141/79 H Pulse Oximetry 96 93 100 09/11/19 21:36 09/12/19 03:16 09/12/19 03:27 Temperature Pulse Rate 81 70 77 Respiratory Rate 20 22 H 24 H Blood Pressure Pulse Oximetry 95 09/12/19 06:00 09/12/19 10:15 09/12/19 10:25 Temperature 36.7 C Pulse Rate 62 74 79 Respiratory Rate 24 H 24 H 20
--- NOTE | 2019-09-12 16:24 | PCRCNOTE ---
[employer] ( ) to deliver Trilogy unit to hospital today. Patient to wear overnight.
--- NOTE | 2019-09-12 16:50 | PM.IMPN ---
Progress Note: A&P Assessment and Plan (1) Acute on chronic respiratory failure with hypoxia and hypercapnia: Code(s): J96.21 - Acute and chronic respiratory failure with hypoxia; J96.22 - Acute and chronic respiratory failure with hypercapnia Status: Acute Assessment and Plan: Secondary to COPD exacerbation. Cardiomegaly and congestion also noted on imaging also noted.but normal echo improvement in pCO2.with updrafts, steroids, and bipap Will continue with BiPAP at nighttime.and transition to trilogy unit this pm Dr. Leslie consulted and she will arrange for the Trilogy unit (2) COPD (chronic obstructive pulmonary disease): Qualifiers: COPD type: COPD with acute exacerbation Qualified Code(s): J44.1 - Chronic obstructive pulmonary disease with (acute) exacerbation Code(s): J44.9 - Chronic obstructive pulmonary disease, unspecified Status: Acute Assessment and Plan: Schedule nebulizers q.6 hours. started daily prednisone 40 qd. and will start taper am 09/13 No indication for antibiotics. (3) Cardiomegaly: Code(s): I51.7 - Cardiomegaly Status: Acute Assessment and Plan: Echocardiogram has been done and no wall motion abnormalities, normal EF, and no pulmonary hypertension (4) Elevated troponin: Code(s): R79.89 - Other specified abnormal findings of blood chemistry Status: Acute Assessment and Plan: Likely due to respiratory failure. She is having no chest pain whatsoever. As above, echocardiogram no wall motion abnormalities (5) Right rib fracture: Code(s): S22.31XA - Fracture of one rib, right side, initial encounter for closed fracture Status: Acute Assessment and Plan: Age indeterminate right 6th rib fracture. 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 (6) Myasthenia gravis: Code(s): G70.00 - Myasthenia gravis without (acute) exacerbation Status: Acute Assessment and Plan: No evidence of acute issue. Will need to monitor closely and increased steroid should help (7) DVT prophylaxis: Code(s): Z29.9 - Encounter for prophylactic measures, unspecified Status: Acute Assessment and Plan: lovenox Subjective Date/time seen: 09/12/19 16:50 Interval history: Date of visit 09/12/2019. A 84-year-old white female with COPD admitted with exacerbation and respiratory failure. Less coughing no fever chills or chest pain Feels better this a.m. after BiPAP, steroids, and updrafts Slept better Exam Narrative: Exam Narrative: General: Thin frail elderly female seems comfortable this am. HEENT: Normocephalic, atraumatic. PERRL, EOMI. Sclerae anicteric. Neck: Supple. No JVD. Chest: Respirations are nonlabored. She is speaking in full sentences and comfortable Respiratory: Lung sounds are diminished with no expiratory wheezing now and moving air better Cardiovascular: Regular rate and rhythm with S1-S2. Gastrointestinal: Abdomen is soft, flat, nontender, and nondistended with positive bowel sounds. Skin: Warm and dry. No rash or lesions on limited exam. Extremities: No cyanosis, clubbing, or edema. Radial and pedal pulses intact. Neurological: Alert. Cranial nerves 2-12 are grossly intact. No gross focal deficits to casual conversation. Psychiatric: Pleasant and cooperative with normal mood and affect. Judgment and insight intact. Objective Data Vital Signs Vital Signs: Vital Signs - 24 hr 09/11/19 19:43 09/11/19 21:23 09/11/19 21:30 Temperature 36.2 C L 36.7 C Pulse Rate 71 78 78 Respiratory Rate 22 H 20 24 H Blood Pressure 130/64 141/79 H Pulse Oximetry 96 93 100 09/11/19 21:36 09/12/19 03:16 09/12/19 03:27 Temperature Pulse Rate 81 70 77 Respiratory Rate 20 22 H 24 H Blood Pressure Pulse Oximetry 95 09/12/19 06:00
[2019-09-12] MEDS: LATANOPROST 0.005% OP SOLN 2.5 ML BTL 1 DROP EACH EYE (17:35)
[2019-09-12] MEDS: ENOXAPARIN 40 MG/0.4 ML SYRINGE SUB-Q (20:11)
[2019-09-12] MEDS: SERTRALINE HCL 25 MG TABLET PO (20:11)
[2019-09-13] VITALS (8 sets, daily range): BP systolic 100–154; BP diastolic 62–78; PULSE 60–100; RESP 15–18; TEMP 36.6–37.3; O2SAT 91–97
[2019-09-13] MEDS: ALBUTEROL SULFATE NEB 2.5 MG/0.5 ML INH 5 MG INHALATION ×2 (02:49→08:10)
[2019-09-13] MEDS: IPRATROPIUM BR 0.02% INH SOLN 0.5 MG/2.5 ML VIAL INHALATION ×2 (02:49→08:10)
[2019-09-13 04:36] LABS: Alveolar/Arterial O2 Gradient 105.8 mmHg; Base Excess ABG 10.8 mEq/l (+/-2.0); Carboxyhemoglobin 0.3 % THb (0-2.0); Fractional Inspired Oxygen 32 %; HCO3 ABG 35.9 mEq/l (22.0-26.0); Methemoglobin ABG 0.3 %THb (0-1.5); Modified Allen's Test Pass; Oxygen Content ABG 14.1 %vol (16.0-22.0); Oxygen Saturation ABG 93.1 % (95.0-100.0); Oxyhemoglobin 92.7 % THb (90.0-100.0); PCO2 ABG 50.6 mmHg (35.0-45.0); PO2 ABG 63.2 mmHg (80.0-100.0); PO2 FiO2 Ratio Arterial Blood 1.98 %; Reduced Hemoglobin 6.7 %THb (0-5.0); Site Drawn LEFT RADIAL; Total Hemoglobin 10.8 g/dL (12.0-18.0); pH ABG 7.469 (7.350-7.450)
[2019-09-13 04:37] LABS: Device BIPAP
[2019-09-13] MEDS: BUDESONIDE RESPULE NEB 0.5 MG/2 ML AMP INHALATION (08:10)
[2019-09-13] MEDS: predniSONE 20 MG, predniSONE 10 MG 30 MG PO (08:36)
[2019-09-13] MEDS: CHOLECALCIFEROL 1,000 UNIT TABLET 2000 UNITS PO (08:36)
[2019-09-13] MEDS: ROSUVASTATIN 10 MG TABLET 20 MG PO (08:36)
--- NOTE | 2019-09-13 13:01 | PM.PNPUL ---
Progress Note: A&P Assessment and Plan (1) Acute on chronic respiratory failure with hypoxia and hypercapnia: Code(s): J96.21 - Acute and chronic respiratory failure with hypoxia; J96.22 - Acute and chronic respiratory failure with hypercapnia Status: Acute Assessment and Plan: [id number] hypercapnic hypoxemic respiratory failure due to combination of chronic obstructive pulmonary disease exacerbation and suspected worsening of her myasthenia gravis. She used the Trilogy NPPV last night with improved ABG; She will be able to go home with this and can f/u in 31 days for compliance check in the office. Letitia from [employer] [phone] [facility] as the one she has is painful over the bridge of her nose. She lives in her home with her daughter, Mary. Her manufacturers representative is Shanon, and there is another child care centre manager who will be available in the evenings from 4 pm - 10 pm to help her get through the evening hours. She can use this nocturnal positive pressure ventilation for nighttime use with all episodes of sleep and during the day as needed for shortness of breath. We will continue her bronchodilator therapy, inhaled corticosteroids, wean oral prednisone. (2) Myasthenia gravis: Code(s): G70.00 - Myasthenia gravis without (acute) exacerbation Status: Acute Assessment and Plan: Myasthenia gravis with neuromuscular weakness. Her primary sites of involvement include eye lid weakness, facial weakness, gait and respiratory muscle weakness. She is followed by Muscular Dystrophy clinic at [place]. (3) COPD (chronic obstructive pulmonary disease): Qualifiers: COPD type: COPD with acute exacerbation Qualified Code(s): J44.1 - Chronic obstructive pulmonary disease with (acute) exacerbation Code(s): J44.9 - Chronic obstructive pulmonary disease, unspecified Status: Acute Assessment and Plan: Chronic obstructive pulmonary disease for many years, currently on nebulized inhaled steroids and bronchodilators at home. TOBACCO: History of remote smoking half pack per day for several years, none since her 20s. (4) Shortness of Breath: Code(s): R06.02 - Shortness of breath Status: Acute Assessment and Plan: Mainly with exertion. Subjective Date/time seen: 09/13/19 13:01 This 84 yo female is seen in follow up for acute on chronic hypercapnic hypoxemia resp failure. Her daughter Keena is at the bedside. She wore the Trilogy last night with improvement in ABG 7.46, 50.6, 63. CO2 is lower. She is feeling better today, and is stable for discharge. Review of Systems Review of Systems: Narrative: Mask with Trilogy caused redness and pain over the bridege of her nose. Exam Const: General: no acute distress HENMT: Other: decreased hearing Neck: Lymphatic: lymphadenopathy not noted Resp: Auscultation: diminished lung sounds Other: hyperinflated thorax Cardio: Rate: regular rate Rhythm: regular rhythm GI: Auscultation: normal bowel sounds Skin: General skin exam: normal color Extrem: General: no edema Psych: Mental Status: mental status grossly normal Objective Data Vital Signs Vital Signs: Vital Signs - 24 hr 09/12/19 14:00 09/12/19 15:00 09/12/19 15:08 Temperature 37.4 C Pulse Rate 91 95 76 Respiratory Rate 17 20 20 Blood Pressure 130/63 Pulse Oximetry 98 09/12/19 20:39 09/12/19 20:40 09/12/19 20:50 Temperature Pulse Rate 92 93 Respiratory Rate 20 20 Blood Pressure Pulse Oximetry 92 09/12/19 22:00 09/12/19 22:40 09/13/19 02:35 Temperature 37.1 C Pulse Rate 100 63 60 Respiratory Rate 18 15 15
--- NOTE | 2019-09-13 14:28 | PC.NURSE ---
Patient discharged @1406 via wheel chair. IV removed, patient transported home via family and POV.
--- NOTE | 2019-09-13 18:05 | PM.DS ---
DS: Diagnosis Admitting Diagnosis Admitting Diagnosis: Acute and chronic respiratory failure with hypoxia Discharge Diagnosis (1) Acute on chronic respiratory failure with hypoxia and hypercapnia: Code(s): J96.21 - Acute and chronic respiratory failure with hypoxia; J96.22 - Acute and chronic respiratory failure with hypercapnia Status: Acute Assessment and Plan: Secondary to COPD exacerbation. Cardiomegaly and congestion also noted on imaging also noted.but normal echo improvement in pCO2.with updrafts, steroids, and bipap transitioned to trilogy night before d/c and did well Dr. Leslie consulted and she arranged for the Trilogy unit (2) COPD (chronic obstructive pulmonary disease): Qualifiers: COPD type: COPD with acute exacerbation Qualified Code(s): J44.1 - Chronic obstructive pulmonary disease with (acute) exacerbation Code(s): J44.9 - Chronic obstructive pulmonary disease, unspecified Status: Acute Assessment and Plan: Schedule nebulizers q.6 hours. Prednisone 30 mg today and will take 20 mg daily for 3-4 days at home than back to her usual 20 mg twice a week No indication for antibiotics. (3) Cardiomegaly: Code(s): I51.7 - Cardiomegaly Status: Acute Assessment and Plan: Echocardiogram has been done and no wall motion abnormalities, normal EF, and no pulmonary hypertension (4) Elevated troponin: Code(s): R79.89 - Other specified abnormal findings of blood chemistry Status: Acute Assessment and Plan: Likely due to respiratory failure. She is having no chest pain whatsoever. As above, echocardiogram no wall motion abnormalities and EKG no ischemic changes (5) Right rib fracture: Code(s): S22.31XA - Fracture of one rib, right side, initial encounter for closed fracture Status: Acute Assessment and Plan: Age indeterminate right 6th rib fracture. 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 (6) Myasthenia gravis: Code(s): G70.00 - Myasthenia gravis without (acute) exacerbation Status: Acute Assessment and Plan: No evidence of acute issue. Continue steroid treatment DS: Summary Hospital Course Reason for hospitalization: 84-year-old white female with COPD admitted with exacerbation and acute on chronic respiratory failure with hypoxia and hypercapnia. Responded to BiPAP initially and transition to trilogy unit for home use. Show follow-up with Dr. Banks within the next [address] Leslie and the next 3-4 weeks Time Spent with Patient Time attestation: Total time spent providing and/or coordinating discharge services: 35 minutes Exam Narrative: Exam Narrative: Condition on discharge Blood pressure 126/62 pulse is 80 saturating 95% on 08/14 L nasal cannula Lungs clear prolonged expiratory phase CV regular rate rhythm Abdomen is soft nontender Extremities without edema Neuro alert pleasant cooperative no focal deficits DS: Data Data Completed and Pending Labs on day of discharge: Labs from last 24 hours 09/13/19 04:21 Puncture Site Left radial ABG pH 7.469 H ABG pCO2 50.6 H ABG pO2 63.2 L ABG PO2/FiO2 Ratio 1.98 ABG HCO3 35.9 H ABG O2 Saturation 93.1 L ABG O2 Content 14.1 L ABG Base Excess 10.8 A-a Gradient 105.8 Oxyhemoglobin 92.7 Carboxyhemoglobin 0.3 Methemoglobin 0.3 Reduced Hemoglobin 6.7 H Total Hemoglobin 10.8 L O2 Delivery Device Bipap O2 Liters/Min 3.0 FiO2 32 Expiratory Pressure Pending Inspiratory Pressure Pending Discharge Plan Discharge Attending physician on discharge: Louie Lion Consulting providers: Stefany Leslie Discharging Clinician: Louie Lion Patient Disposition: Home, Self-Care Activity: as tolerated Diet: regular Patient Instructions: Antibiotic Form, Pain Managemen
== END 2019-09-13 14:06 | disposition home or self-care (01) | DRG 189 ==
LOC: ANHED 10:53 → ANHIMU 14:16 → ANH3MEDSUR 09-12 00:52 → ANHIMU 09-16 16:00
PROVIDERS: Internal Medicine Critical Care Medicine; Physician Assistant; Admitting Provider Hospitalist; Emergency Provider Emergency Medicine; PCP Internal Medicine; Visit Provider Internal Medicine
DX: J96.21 Acute and chronic respiratory failure with hypoxia (principal); J44.1 Chronic obstructive pulmonary disease with (acute) exacerbation; R64 Cachexia; Z68.1 Body mass index [BMI] 19.9 or less, adult; J96.22 Acute and chronic respiratory failure with hypercapnia; G70.00 Myasthenia gravis without (acute) exacerbation; F41.8 Other specified anxiety disorders; E78.00 Pure hypercholesterolemia, unspecified; Z85.038 Personal history of other malignant neoplasm of large intestine; M81.0 Age-related osteoporosis without current pathological fracture; Z90.49 Acquired absence of other specified parts of digestive tract; Z87.891 Personal history of nicotine dependence; E86.0 Dehydration; Z99.81 Dependence on supplemental oxygen; E78.5 Hyperlipidemia, unspecified
CPT/HCPCS: 36415; 36600; 51701; 70450; 71045; 80048; 81001; 82375; 82728; 82805; 83050; 83540; 83550; 83880; 84484; 85025; 85027; 85610; 85730; 87804; 93005; 93306; 94002; 94003; 94640; 94667; 96361; 96374; 97116; 97162; 97165; 97530; 97535; 99285; A9270; J1650; J2930; J7030; J7512

== ENCOUNTER 2020-04-13 11:31 | Outpatient (CLI) | payer MEDICARE, SELFPAY ==
--- NOTE | ~2020-04-13 | XR_ITS ---
EXAMINATION: XR lumbar spine 2-3V DATE: 04/13/2020 11:58 INDICATION: Back pain after fall TECHNIQUE: Anteroposterior and lateral views of the lumbar spine, and cone-down lateral view of the l umbosacral junction were obtained. COMPARISON: None. FINDINGS: Sensitivity for fracture is limited by osteopenia. There are 31 degrees lumbar levoscoliosi s. There is loss of vertebral body height at L1 as well as in several lower thoracic vertebral bodies . Bone alignment appears normal. There is moderate to severe loss of intervertebral disc space height at L1-2. A large volume of stool is present in the rectum. There appear to be surgical changes of th e pelvis. Calcified atherosclerosis is noted. The visualized lung bases are clear. IMPRESSION: 1. Findings suggestive of age-indeterminate compression fractures of the lower thoracic spine and L1, sensitivity limited by osteopenia.. Reviewed, dictated and finalized at location A.
--- NOTE | ~2020-04-13 | XR_ITS ---
XR pelvis 1-2V DATE: 04/13/2020 11:58 INDICATION: Fall. Pelvic pain. TECHNIQUE: AP pelvis COMPARISON: None FINDINGS: There is rotatory levoscoliosis and multilevel degenerative disc disease of the lumbar spin e. There is suggestion of compression fracture deformity of uncertain age of the most inferior functiona l lumbar vertebra. There is a transitional lumbosacral vertebra with at least right-sided sacralization and pseudoarthro sis. The pubic symphysis and sacroiliac joints are intact. No apparent acute pelvic fracture is evident. If there is continuing clinical concern for occult radi ographic pelvic fracture, consider CT pelvis examination, which would be more sensitive in particular for detection of insufficiency fractures. Bilateral hip joint chondrocalcinosis. Incidentally noted are some bowel sutures. IMPRESSION: Osteopenia No obvious recent pelvic fracture. CT examination may be helpful to detect occult insufficiency fract ures as clinically appropriate. 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 IMPRESSION: Osteopenia No obvious recent pelvic fracture. CT examination may be helpful to detect occu lt insufficiency fractures as clinically appropriate. 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
== END 2020-04-13 11:32 | disposition home or self-care (01) ==
PROVIDERS: PCP Internal Medicine; Visit Provider Clinical Nurse Specialist
DX: M54.5 Low back pain (principal); W19.XXXA Unspecified fall, initial encounter; M85.88 Other specified disorders of bone density and structure, other site; Q76.49 Other congenital malformations of spine, not associated with scoliosis; M41.86 Other forms of scoliosis, lumbar region; M51.36 Other intervertebral disc degeneration, lumbar region; M11.252 Other chondrocalcinosis, left hip; M11.251 Other chondrocalcinosis, right hip
CPT/HCPCS: 72100; 72170

== ENCOUNTER 2020-11-13 19:53 | Emergency (ER) | payer MEDICARE, SELFPAY ==
--- NOTE | ~2020-11-13 | XR_ITS ---
EXAMINATION: XR hip RT 2V w AP pelvis DATE: 11/13/2020 20:35 INDICATION: Right hip pain. TECHNIQUE: An anteroposterior view of the pelvis and 2 views of right hip were obtained. COMPARISON: Pelvis radiograph 04/13/2020 FINDINGS: There is lumbar levoscoliosis and severe spondylosis. There are old healed fractures of rig ht superior and inferior pubic rami. There is a fracture of left parasymphyseal pubis. There is mild osteoarthritis of the hips. IMPRESSION: 1. Age-indeterminate fracture deformity of left parasymphyseal pubis, changed from 04/13/20. 2. Mild osteoarthritis of the hips. Reviewed, dictated and finalized at location A. IMPRESSION: 1. Age-indeterminate fracture deformity of left parasymphyseal pubis, changed f rom 04/13/20. 2. Mild osteoarthritis of the hips.
--- NOTE | ~2020-11-13 | XR_ITS ---
EXAMINATION: XR lumbar spine 2-3V DATE: 11/13/2020 20:35 INDICATION: Right hip pain. TECHNIQUE: 3 views of lumbar spine were obtained. COMPARISON: Lumbar spine radiographs 04/13/2020 FINDINGS: There is 23 degrees levoscoliosis of lumbar spine. L5 is a transitional segment. There are chronic compression fractures of L4, L2, L1, T12, T11, and T10. There is severely decreased disc heig ht at L4-L5. There is mild to moderately decreased disc height at all other levels. IMPRESSION: 1. Severe lumbar spondylosis. 2. Lumbar levoscoliosis. Reviewed, dictated and finalized at location A.
[2020-11-13 19:55] VITALS: BP 94/64; PULSE 42; RESP 16; TEMP 36.2; O2SAT 94
--- NOTE | 2020-11-13 20:15 | ED.EXTPRO ---
HPI - Extremity Problem General Chief complaint: Extremity Problem,Nontraumatic Stated complaint: rt hip pain (glf x 6 months ago) Time Seen by Provider: 11/13/20 20:02 Source: patient, family and RN notes reviewed Mode of arrival: ambulatory Limitations: dementia History of Present Illness HPI Narrative: Patient is 85 years old white female lives with her daughter who brought with her to the emergency room complaining of right hip pain after a fall 6 to 8 months ago. Patient came to the emergency room at that time with negative x-ray. The daughter and the patient denies any recent trauma. Fever, chills, nausea, vomiting, abdominal pain, back pain, chest pain, shortness of breath or headache. Patient walks without physician assistant psychiatry or a walker. Lately the daughter noticed that the patient complaining of right hip pain more than usual. Related Data Home Medications Medication Instructions Recorded Confirmed bimatoprost 0.01 % eye drops 1 drop EACH EYE QPM 08/14/19 11/09/20 budesonide 0.5 mg/2 mL suspension 0.5 mg INHALATION BID ml 08/14/19 11/09/20 for nebulization cholecalciferol (vitamin D3) 50 2,000 unit PO DAILY 08/14/19 11/09/20 mcg (2,000 unit) tablet Allergies Allergy/AdvReac Type Severity Reaction Status Date / Time No Known Allergies Allergy Verified 11/09/20 11:08 Review of Systems Review of Systems: Narrative: CONSTITUTIONAL: Denies fever, chills, or sweats. EYES: Denies visual changes, redness, or discharge. ENT: Denies rhinorrhea, congestion, sore throat, or otalgia. CARDIOVASCULAR: Denies chest pain, palpitations, or edema. RESPIRATORY: Denies cough or dyspnea. GASTROINTESTINAL: Denies abdominal pain, nausea, vomiting, or diarrhea. GENITOURINARY: Denies dysuria or hematuria. SKIN: Denies rash or itching. MUSCULOSKELETAL: Denies back pain, joint pain, or myalgia. NEUROLOGIC: Denies headache, numbness, or weakness. PSYCHIATRIC: Denies anxiety or depression. [facility] Past Medical History Medical History Anxiety Chronic respiratory failure with hypoxia Colon cancer COPD (chronic obstructive pulmonary disease) Depression High cholesterol Myasthenia gravis Osteoporosis Surgical History Surgical History History of appendectomy History of cholecystectomy History of colon surgery For colon cancer. Family History Family History Mother Cerebrovascular accident Father Heart disease Social History Social History Social History: The patient is . She lives in her own home in [place]. She has 4 children. One of her daughters frequently stays at home with her as she gets anxious at nighttime. A ceramic engineer does, help throughout the day. She smoked < half pack of cigarettes for several years in her teens and 20s. No alcohol or drug use. Her daughter Mary is her healthcare power of tax attorney. The patient wishes to be a full code. Years smoked: 20 Smoking status: Former smoker Smoking end date: 08/13/62 Alcohol intake: never Substance use: never Gender identity (if verbalized by the patient): Female Spiritual care concerns: No Agree to blood products: Yes Exam Narrative: Exam Narrative: General appearance: Well-developed, well-nourished Skin: Normal color Head: Normocephalic, nontraumatic Eyes: Clear conjunctiva ENT: Oropharynx normal, ears normal, nose normal Neck: Supple, nontender Chest and respiratory: Airway patent, no respiratory distress, no accessory muscle use Heart: Regular rate/rhythm Abdomen: Soft, nontender, no organomegaly, quiet bowel sounds Vascular: Normal peripheral pulses, normal capillary refill. Musculoskeletal: Normal range of motion, nontender back, mild tenderness left sacroiliac joint, no bruises, no swelling, no rash Neurologic
[2020-11-13 21:33] VITALS: BP 104/74; PULSE 86; RESP 18; O2SAT 99
== END 2020-11-13 21:34 | disposition home or self-care (01) ==
PROVIDERS: Emergency Provider Emergency Medicine; PCP Internal Medicine
DX: M54.9 Dorsalgia, unspecified (principal); J96.11 Chronic respiratory failure with hypoxia; J44.9 Chronic obstructive pulmonary disease, unspecified; Z85.038 Personal history of other malignant neoplasm of large intestine; E78.00 Pure hypercholesterolemia, unspecified; G70.00 Myasthenia gravis without (acute) exacerbation; M81.0 Age-related osteoporosis without current pathological fracture; Z87.891 Personal history of nicotine dependence; M16.0 Bilateral primary osteoarthritis of hip; M47.816 Spondylosis without myelopathy or radiculopathy, lumbar region
CPT/HCPCS: 72100; 73502; 99283

== ENCOUNTER 2021-01-13 14:29 | Outpatient (CLI) | payer MEDICARE, SELFPAY ==
[2021-01-13 15:01] LABS: Basophils Percent Auto 0.5 % (0.2-1.2); Eosinophils Absolute Auto 0.1 K/mm3 (0-0.3); Eosinophils Percent Auto 2.8 % (0-4.4); Hematocrit 39.8 % (37.0-47.0); Hemoglobin 11.6 g/dL (12.0-15.0); Immature Granulocyte Absolute 0.01 K/mm3 (0.00-0.031); Immature Granulocyte Percent A 0.2 % (0-0.5); Lymphocytes Absolute Auto 0.65 K/mm3 (0.9-3.2); Lymphocytes Percent Auto 15.1 % (18.3-44.2); Mean Corpuscular HGB Conc 29.1 g/dl (32-36); Mean Corpuscular Hemoglobin 28.8 pg (26-34); Mean Corpuscular Volume 98.8 fl (80-100); Mean Platelet Volume 9.8 fl (7.4-10.4); Monocytes Absolute Auto 0.4 K/mm3 (0.1-0.6); Monocytes Percent Auto 9.1 % (2.6-8.5); Neutrophils Absolute Auto 3.1 K/mm3 (1.3-6.7); Neutrophils Percent Auto 72.3 % (45.5-73.1); Platelet Count Result 148 k/mm3 (150-375); Red Blood Count 4.03 M/mm3 (4.2-5.4); Red Cell Distribution Width 13.1 % (11.5-14.5); White Blood Count 4.3 K/mm3 (4.5-10.0)
[2021-01-13 15:14] LABS: Alanine Aminotransferase 14 U/L (4-35); Albumin Level 4.1 g/dL (3.5-5.1); Alkaline Phosphatase 46 U/L (38-126); Aspartate Amino Transferase 24 U/L (14-36); Bilirubin,Total 0.1 mg/dL (0.2-1.3); Blood Urea Nitrogen 19 mg/dL (7-17); Calcium 10.2 mg/dL (8.4-10.2); Carbon Dioxide > 40 mmol/L (22-30); Chloride 99 mmol/L (98-107); Cholesterol 165 mg/dL (0-200); Estimated Glomerular Filt Rate > 60; Glucose 122 mg/dL (65-105); HDL Direct 87 mg/dL; Potassium 3.9 mmol/L (3.4-5.0); Sodium 143 mmol/L (137-145); Triglycerides 64 mg/dL (<150)
[2021-01-13 15:19] LABS: LDL Cholesterol Direct 48 mg/dL
[2021-01-13 15:20] LABS: Hypochromasia 1+ (NORMAL)
[2021-01-13 15:21] LABS: Platelet Estimate Adequate (Adequate)
== END 2021-01-13 14:30 | disposition home or self-care (01) ==
LOC: ANHLAB 14:31
PROVIDERS: PCP Internal Medicine; Visit Provider Nurse Practitioner
DX: E78.00 Pure hypercholesterolemia, unspecified (principal); N28.9 Disorder of kidney and ureter, unspecified
CPT/HCPCS: 36415; 80053; 80061; 85025

== ENCOUNTER 2021-02-14 20:23 | Emergency (ER) | payer MEDICARE, SELFPAY ==
--- NOTE | ~2021-02-14 | XR_ITS ---
EXAMINATION: XR chest 2V EXAM DATE: 02/14/2021 21:02 INDICATION: Weakness, history COPD, high cholesterol. TECHNIQUE: Frontal and lateral projections of the chest obtained and reviewed. Comparison is made to prior examination from 09/01/2019. FINDINGS: Severe chronic hyperinflation. Cardiomegaly. No confluent consolidation, pneumothorax or p leural effusion suspected. Some scattered postinfectious residua. Moderate to severe thoracal lumbar scoliosis. The bones are osteopenic. There are bony degenerative changes. IMPRESSION: 1. Hyperinflation. 2. Cardiomegaly. Reviewed, dictated and finalized at location G.
--- NOTE | ~2021-02-14 | XR_ITS ---
XR hip RT 2V w AP pelvis DATE: 02/15/2021 00:10 INDICATION: Right hip pain TECHNIQUE: AP pelvis. AP and lateral views of right hip COMPARISON: 11/30/2020 pelvis and right hip FINDINGS: Diffuse osteopenia. There is rotatory lumbar levoscoliosis and multilevel degenerative disc disease of the lumbar spine. There is a transitional lumbosacral vertebra with sacralization pseudoarthrosis on the left. The pubic symphysis and sacroiliac joints are intact. Old fracture deformity of the parasymphyseal left pubic bone. Old right superior and inferior pubic r amus fractures. No recent pelvic fracture is evident. No fracture or dislocation, avascular necrosis or bone destruct ion of the right hip is detected. Bilateral hip chondrocalcinosis. Mild osteoarthritis at both hips. Abdominal aortic calcification and tortuosity. IMPRESSION: Diffuse osteopenia Rotatory levoscoliosis and multilevel degenerative disc disease of the lumbar spine Transitional lumbosacral vertebra with sacralization pseudoarthrosis on the left hip old left pubic a nd right superior and inferior pubic ramus fractures Mild bilateral hip osteoarthritis Chondrocalcinosis of both hips Reviewed, dictated and finalized at location A. IMPRESSION: Diffuse osteopenia Rotatory levoscoliosis and multilevel degenerative disc disease of the lumbar s pine Transitional lumbosacral vertebra with sacralization pseudoarthrosis on the lef t hip old left pubic and right superior and inferior pubic ramus fractures Mild bilateral hip osteoarthritis Chondrocalcinosis of both hips
[2021-02-14 20:25] VITALS: BP 153/64; PULSE 77; RESP 14; TEMP 36.7; O2SAT 100
--- NOTE | 2021-02-14 20:31 | ECG_ITS ---
Measurements Intervals [place] Rate: 72 P: 87 PA: 187 QRS: 79 QRSD: 96 T: 63 QT: 364 QTc: 401 Interpretive Statements SINUS RHYTHM ANTEROSEPTAL INFARCT, AGE INDETERMINATE BASELINE ARTIFACT- I, II, AVR, AVL, AVF, V1-V6 ABNORMAL ECG Electronically Signed On 02-15-2021 9:32:51 CDT by Rashad Hoyos D.O.
[2021-02-14 20:57] LABS: Basophils Percent Auto 0.9 % (0.2-1.2); Eosinophils Absolute Auto 0.2 K/mm3 (0-0.3); Eosinophils Percent Auto 3.9 % (0-4.4); Hemoglobin 11.5 g/dL (12.0-15.0); Immature Granulocyte Absolute 0.01 K/mm3 (0.00-0.031); Immature Granulocyte Percent A 0.2 % (0-0.5); Lymphocytes Absolute Auto 0.67 K/mm3 (0.9-3.2); Lymphocytes Percent Auto 15.4 % (18.3-44.2); Mean Corpuscular HGB Conc 29.5 g/dl (32-36); Mean Corpuscular Hemoglobin 29.3 pg (26-34); Mean Corpuscular Volume 99.5 fl (80-100); Mean Platelet Volume 9.3 fl (7.4-10.4); Monocytes Absolute Auto 0.4 K/mm3 (0.1-0.6); Monocytes Percent Auto 9.2 % (2.6-8.5); Neutrophils Absolute Auto 3.1 K/mm3 (1.3-6.7); Neutrophils Percent Auto 70.4 % (45.5-73.1); Platelet Count Result 165 k/mm3 (150-375); Red Blood Count 3.92 M/mm3 (4.2-5.4); Red Cell Distribution Width 13.3 % (11.5-14.5); White Blood Count 4.3 K/mm3 (4.5-10.0)
[2021-02-14 21:10] LABS: Alanine Aminotransferase 16 U/L (4-35); Albumin Level 4.4 g/dL (3.5-5.1); Alkaline Phosphatase 53 U/L (38-126); Aspartate Amino Transferase 29 U/L (14-36); Bilirubin,Total 0.2 mg/dL (0.2-1.3); Blood Urea Nitrogen 31 mg/dL (7-17); Calcium 10.2 mg/dL (8.4-10.2); Carbon Dioxide > 40 mmol/L (22-30); Chloride 97 mmol/L (98-107); Estimated Glomerular Filt Rate > 60; Glucose 120 mg/dL (65-105); Potassium 4.5 mmol/L (3.4-5.0); Sodium 143 mmol/L (137-145)
[2021-02-14 23:39] VITALS: PULSE 64; RESP 19; O2SAT 99
[2021-02-14 23:45] VITALS: BP 121/76; PULSE 66; RESP 19; O2SAT 99
[2021-02-14 23:46] VITALS: PULSE 67; O2SAT 99
[2021-02-15] VITALS (10 sets, daily range): BP systolic 116–138; BP diastolic 68–87; PULSE 67–84; RESP 18–22; O2SAT 93–100
[2021-02-15 01:19] LABS: Add Urine Microscopic? YES; Appearance Urine Cloudy (Clear); Bilirubin Urine Negative (Negative); Color Urine Yellow (Yellow); Glucose Urine UA Negative (Negative); Ketones Urine Negative (Negative); Leukocyte Esterase Ur Trace LEU/UL (Negative); Mucus Urine Rare /lpf; Nitrate Urine Negative (Negative); Protein Urine Negative (Negative); RBC Urine 0-2 /hpf (0-2); Specific Grav Ur 1.023 (1.001-1.035); Squamous Epithelial Cell Urine Many /hpf (Few); Urobilinogen Urine Negative mg/dL (<2.0)
[2021-02-15 01:20] LABS: Blood Urine Negative (Negative)
--- NOTE | 2021-02-15 01:37 | ED.GENADULT ---
HPI - General Adult General Chief complaint: Fall Stated complaint: leg pain/ not feeling well Time Seen by Provider: 02/14/21 23:43 History of Present Illness HPI narrative: Patient is a 85-year-old female who presents the emergency department with chief complaint of right hip pain and blood in stool several days ago. Patient currently just states that her right hip area hurts reports that she fell several days ago on the carpet and the family was concerned as tonight she was saying that she was hurting more patient does have history of pelvic fractures and also has history of arthritis in the right hip. The patient has been able to ambulate but has had increasing pain. The family noted also the other day when she had a bowel movement she had a little bit of blood in her stool but has not had any since then. Related Data Home Medications Medication Instructions Recorded Confirmed budesonide 0.5 mg/2 mL suspension 0.5 mg INHALATION BID ml 08/14/19 11/09/20 for nebulization cholecalciferol (vitamin D3) 50 2,000 unit PO DAILY 08/14/19 11/09/20 mcg (2,000 unit) tablet Allergies Allergy/AdvReac Type Severity Reaction Status Date / Time No Known Allergies Allergy Verified 11/09/20 11:08 Review of Systems Review of Systems: Narrative: A 10 system review of systems was completed on the patient and is negative except for what is stated in the HPI. Nursing and ancillary documentation was reviewed. [facility] Past Medical History Medical History Anxiety Chronic respiratory failure with hypoxia Colon cancer COPD (chronic obstructive pulmonary disease) Depression High cholesterol Myasthenia gravis Osteoporosis Surgical History Surgical History History of appendectomy History of cholecystectomy History of colon surgery For colon cancer. Family History Family History Mother Cerebrovascular accident Father Heart disease Social History Social History Social History: The patient is . She lives in her own home in [place]. She has 4 children. One of her daughters frequently stays at home with her as she gets anxious at nighttime. A criminal justice professor does, help throughout the day. She smoked < half pack of cigarettes for several years in her teens and 20s. No alcohol or drug use. Her daughter Mary is her healthcare power of trust and estates attorney. The patient wishes to be a full code. Years smoked: 20 Smoking status: Former smoker Smoking end date: 08/13/62 Alcohol intake: never Substance use: never Gender identity (if verbalized by the patient): Female Spiritual care concerns: No Agree to blood products: Yes Exam Narrative: Exam Narrative: GENERAL: Well-appearing, well-nourished, and in no acute distress. HEAD: Normocephalic, atraumatic. EYES: PERRLA and EOMI. ENT: Nares clear, no rhinorrhea or epistaxis. Mucous membranes moist. NECK: Supple. CHEST: Clear to auscultation. No respiratory distress. HEART: Regular rate and rhythm. No murmur heard. Normal peripheral pulses. ABDOMEN: Soft, nontender, nondistended, normal active bowel sounds. : Rectal exam is guaiac negative EXTREMITIES: Normal range of motion. No edema. Mild tenderness to palpation of the right hip SKIN: Warm, dry, no rash. NEURO: No focal deficits. Alert and pleasantly confused. PSYCH: Normal mood and affect. Course Course Emergency Course: Right hip x-ray shows no evidence of fracture, does show evidence of old pelvic fractures Vital Signs Vital signs: Vital Signs Temperature 36.7 C 02/14/21 20:25 Pulse Rate 77 02/14/21 20:25 Respiratory Rate 14 02/14/21 20:25 Blood Pressure 153/64 H 02/14/21 20:25 Pulse Oximetry 100 02/14/21 20:25 Temper
== END 2021-02-15 02:06 | disposition home or self-care (01) ==
PROVIDERS: Emergency Medicine; Emergency Provider Emergency Medicine; PCP Internal Medicine
DX: M25.551 Pain in right hip (principal); J44.9 Chronic obstructive pulmonary disease, unspecified; F41.9 Anxiety disorder, unspecified; J96.10 Chronic respiratory failure, unspecified whether with hypoxia or hypercapnia; F32.9 Major depressive disorder, single episode, unspecified; Z87.891 Personal history of nicotine dependence; Z85.038 Personal history of other malignant neoplasm of large intestine; W18.30XA Fall on same level, unspecified, initial encounter
CPT/HCPCS: 36415; 71046; 73502; 80053; 81001; 85025; 87086; 87088; 93005; 99284

== ENCOUNTER 2021-06-18 17:42 | Emergency (ER) | payer MEDICARE, SELFPAY ==
[2021-06-18] VITALS (11 sets, daily range): BP systolic 133–158; BP diastolic 64–73; PULSE 78–80; RESP 18; O2SAT 100
--- NOTE | ~2021-06-18 | XR_ITS ---
XR ankle LT min 3V DATE: 06/18/2021 19:12 INDICATION: Fall. Bruising and swelling left ankle TECHNIQUE: 4 views COMPARISON: None FINDINGS: Diffuse osteopenia. There is cortical avulsion fracture of the dorsal aspect of the anterio r process of the talus, of uncertain age. No fracture or dislocation of the ankle or disruption of the ankle mortise is noted otherwise. IMPRESSION: Indeterminate age cortical avulsion fracture of the dorsal aspect of anterior process of the talus Osteopenia Reviewed, dictated and finalized at location A. IMPRESSION: Indeterminate age cortical avulsion fracture of the dorsal aspect o f anterior process of the talus Osteopenia
--- NOTE | ~2021-06-18 | CT_ITS ---
EXAMINATION: CT cervical spine wo con DATE: 06/18/2021 19:41 INDICATION: Fall. Neck injury. TECHNIQUE: Computed tomography (CT) of the cervical spine was performed without intravenous contrast. Automated exposure control and iterative reconstruction technique were employed. Exam dose: 89.02 m Gy-cm total exam DLP. COMPARISON: None FINDINGS: C1 and C2 are normally aligned and the odontoid process is intact. No fracture or dislocati on, locked facet or prevertebral soft tissue swelling. Moderate degenerative disc disease and minimal anterolisthesis at C3-4. Moderately severe degenerative disc disease and approximately 2 mm anterolisthesis at C4-5. Severe degenerative disease at C5-6 and C6-7 Moderate degenerative disc disease at C7-T1. There are moderate fracture deformities of T2 and T3 with cupping of the superior vertebral endplates , of uncertain age. Fusion at the apophyseal joints on the left at C3-4. There is prominent degenerative change at the re maining cervical apophyseal joints bilaterally. Prominent uncovertebral joint spurring throughout the cervical spine. Bilateral apical pulmonary scarring. IMPRESSION: Extensive cervical spondylosis; no fracture or dislocation Reviewed, dictated and finalized at Location A. Reviewed, dictated and finalized at location A.
--- NOTE | ~2021-06-18 | CT_ITS ---
EXAMINATION: CT brain wo con DATE: 06/18/2021 19:41 INDICATION: Fall TECHNIQUE: Computed tomography (CT) of the head was performed without intravenous contrast. The mA wa s adjusted according to patient size. Iterative reconstruction technique was employed. Exam dose: 75 6.67 mGy-cm total exam DLP. COMPARISON: 09/01/2019 CT brain FINDINGS: Bilateral vertebral artery and bilateral carotid siphon internal carotid artery calcificati ons. There is nonspecific diminished attenuation of the cerebral white matter, likely due to chronic small vessel ischemic changes. No intracranial mass lesion or hemorrhage or cerebrovascular accident is evident. No midline shift or mass effect effect. No subdural or epidural hematoma. No fracture or bone destruction of the cranial vault. Mastoid air cells and paranasal sinuses are nor surya developed and aerated. IMPRESSION: Cerebral atherosclerosis and chronic small vessel ischemic changes of the cerebral white matter Reviewed, dictated and finalized at Location A. Reviewed, dictated and finalized at location A.
--- NOTE | ~2021-06-18 | XR_ITS ---
XR knee RT min 4V DATE: 06/18/2021 19:11 INDICATION: Fall. Right knee injury, pain TECHNIQUE: 4 views COMPARISON: None FINDINGS: Diffuse osteopenia. There is prominent chondrocalcinosis of medial and lateral compartments of the knee joint. No fracture or dislocation or joint effusion. No periosteal reaction or bone destruction. Arterial calcification IMPRESSION: Diffuse osteopenia Prominent chondrocalcinosis No fracture or dislocation or joint effusion Reviewed, dictated and finalized at location A.
--- NOTE | ~2021-06-18 | XR_ITS ---
XR shoulder RT min 2V DATE: 06/18/2021 19:12 INDICATION: Fall. Right shoulder pain TECHNIQUE: 4 views COMPARISON: None FINDINGS: There is diffuse osteopenia. There is a minimally displaced fracture of the lateral shaft of the right clavicle. No other fracture or dislocation. No periosteal reaction or bone destruction. There is osteoarthritic spurring of the right glenohumeral head. There is soft tissue calcification of the rotator cuff consistent with calcific tendinitis. Dextroscoliosis of the thoracic spine. IMPRESSION: Minimally displaced fracture of the lateral shaft of the right clavicle Rotator cuff tendinitis Osteoarthritis of right glenohumeral joint Osteopenia Reviewed, dictated and finalized at location A. IMPRESSION: Minimally displaced fracture of the lateral shaft of the right clav icle Rotator cuff tendinitis Osteoarthritis of right glenohumeral joint Osteopenia
--- NOTE | 2021-06-18 19:16 | PC.NURSE ---
Report received from VIRA Andrews. Assumed care of patient at this time.
--- NOTE | 2021-06-18 19:28 | ED.FALL ---
HPI - Fall General Chief Complaint: Fall Stated Complaint: GLF, SHOULDER PAIN Time Seen by Provider: 06/18/21 18:55 Source: patient and RN notes reviewed Mode of arrival: EMS Limitations: dementia History of Present Illness HPI Narrative: This is an 85 year old female with history of hyperlipidemia, dementia, chronic respiratory failure on homeO2 who presents for evaluation of right shoulder pain s/p fall. Patient reports she was sitting in chair leaning her arm on table. She states her table gave out and it caused her to fall forward. She fell onto her right shoulder. She is unsure if she hit her head but she denies headache, dizziness, nasuea, vomiting. She denies rib pain. Triage note reports patient complained of ankle and knee pain but patient denies any lower extremity pain to me. Related Data Home Medications Medication Instructions Recorded Confirmed budesonide 0.5 mg/2 mL suspension 0.5 mg INHALATION BID ml 08/14/19 03/31/21 for nebulization cholecalciferol (vitamin D3) 50 2,000 unit PO DAILY 08/14/19 03/31/21 mcg (2,000 unit) tablet memantine 10 mg tablet 10 mg PO QPM 02/21/21 03/31/21 Allergies Allergy/AdvReac Type Severity Reaction Status Date / Time No Known Allergies Allergy Verified 03/31/21 10:55 Review of Systems Review of Systems: All systems reviewed & are unremarkable except as noted in HPI and below PMFSH Past Medical History Medical History Anxiety Chronic respiratory failure with hypoxia Colon cancer COPD (chronic obstructive pulmonary disease) Depression High cholesterol Myasthenia gravis Osteoporosis Surgical History Surgical History History of appendectomy History of cholecystectomy History of colon surgery For colon cancer. Family History Family History Mother Cerebrovascular accident Father Heart disease Social History Social History Social History: The patient is . She lives in her own home in [place]. She has 4 children. One of her daughters frequently stays at home with her as she gets anxious at nighttime. A pillow filler does, help throughout the day. She smoked < half pack of cigarettes for several years in her teens and 20s. No alcohol or drug use. Her daughter Mary is her healthcare power of workers compensation attorney. The patient wishes to be a full code. Years smoked: 20 Smoking status: Former smoker Smoking end date: 08/13/62 Alcohol intake: never Substance use: never Gender identity (if verbalized by the patient): Female Spiritual care concerns: No Agree to blood products: Yes Exam Const: General: alert Nutritional Appearance: thin Orientation/consciousness: patient oriented x3 HENMT: Head: normocephalic and atraumatic Face and sinus: face symmetric Mouth: Yes Normal oral and palatal mucosa present, Yes lip normal, Yes oropharynx normal and Yes moist mucous membranes Throat: posterior oropharynx normal, tonsils normal and uvula midline Resp: Effort & Inspection: normal respiratory effort and no retractions Auscultation: clear to auscultation bilaterally Cardio: Rate: regular rate Rhythm: regular rhythm Heart sounds: no murmurs GI: GI Palp: Yes Soft to palpation, No Tenderness to palpation present (GI) and No Guarding due to palpation present (GI) Auscultation: normal bowel sounds Neuro: General: patient oriented x3 and moves all extremities Extrem: Other: right shoulder tenderness but no swelling. FROM Psych: Mental Status: mental status grossly normal Affect: normal affect Course Reevaluation(s) Reevaluation #1: I discussed with patient and grandson patient found to have right clavicular fracture. She was placed in sling. She was able to ambulate without difficulty.
[2021-06-18] MEDS: ACETAMINOPHEN 325 MG TABLET 650 MG PO (19:52)
--- NOTE | 2021-06-18 20:56 | PC.NURSE ---
Patient ambulated with a steady gait with walker. ERP notified.
== END 2021-06-18 21:50 ==
PROVIDERS: Emergency Provider General Practice; PCP Internal Medicine
DX: S42.021A Displaced fracture of shaft of right clavicle, initial encounter for closed fracture (principal); S92.192A Other fracture of left talus, initial encounter for closed fracture; E78.5 Hyperlipidemia, unspecified; F03.90 Unspecified dementia, unspecified severity, without behavioral disturbance, psychotic disturbance, mood disturbance, and anxiety; J96.11 Chronic respiratory failure with hypoxia; Z99.81 Dependence on supplemental oxygen; J44.9 Chronic obstructive pulmonary disease, unspecified; E78.00 Pure hypercholesterolemia, unspecified; G70.00 Myasthenia gravis without (acute) exacerbation; M81.0 Age-related osteoporosis without current pathological fracture; Z85.038 Personal history of other malignant neoplasm of large intestine; Z87.891 Personal history of nicotine dependence; M77.9 Enthesopathy, unspecified; M19.011 Primary osteoarthritis, right shoulder; M85.811 Other specified disorders of bone density and structure, right shoulder; M11.261 Other chondrocalcinosis, right knee; M85.861 Other specified disorders of bone density and structure, right lower leg; M85.872 Other specified disorders of bone density and structure, left ankle and foot; M47.812 Spondylosis without myelopathy or radiculopathy, cervical region; I67.2 Cerebral atherosclerosis; W07.XXXA Fall from chair, initial encounter
CPT/HCPCS: 70450; 72125; 73030; 73564; 73610; 99284; A4565; A9270

== ENCOUNTER 2021-06-22 19:09 | Emergency (ER) | payer MEDICARE, SELFPAY ==
--- NOTE | ~2021-06-22 | XR_ITS ---
EXAMINATION: XR chest 1V EXAM DATE: 06/22/2021 21:15 INDICATION: possible rib injury, chest pain after new fall. TECHNIQUE: Portable AP frontal chest x-ray was obtained. Comparison is made to prior examination from 02/14/2021. FINDINGS: Biapical scarring. The lungs are hyperinflated which can be seen with chronic obstructive p ulmonary disease (a clinical diagnosis of functional impairment), but is not diagnostic of it. Mild t o moderate lower thoracic dextroscoliosis. No confluent consolidation, pneumothorax or pleural effusi on suspected. Comminuted right clavicular fracture. IMPRESSION: 1. Acute right clavicular shaft fracture distally. 2. Chronic hyperinflation. 3. Biapical scarring. Reviewed, dictated and finalized at location A. RETTE PACKING MACHINE OPERATOR
--- NOTE | ~2021-06-22 | XR_ITS ---
EXAMINATION: XR clavicle RT EXAM DATE: 06/22/2021 21:15 INDICATION: Right clavicular fracture 2 days ago, fell again tonight. TECHNIQUE: Right clavicle frontal projection with different degrees of tilt. There is no prior stud y for comparison. FINDINGS: Again there is acute comminuted fracture of the distal aspect right clavicular shaft. Diff icult to appreciate any significant interval change in distraction, position compared to prior study. No additional acute findings. IMPRESSION: Acute comminuted right clavicular shaft fracture distally, not significant changed. Reviewed, dictated and finalized at location A. ER OPERATOR IMPRESSION: Acute comminuted right clavicular shaft fracture distally, not sign ificant changed.
[2021-06-22 19:11] VITALS: BP 135/75; PULSE 82; RESP 17; TEMP 36.5; O2SAT 97
[2021-06-22 20:37] VITALS: BP 124/69; PULSE 75; RESP 19; O2SAT 97
--- NOTE | 2021-06-22 21:00 | ED.FALL ---
HPI - Fall General Chief Complaint: Fall Stated Complaint: fall Time Seen by Provider: 06/22/21 19:56 Source: patient, family and EMS Mode of arrival: ambulatory Limitations: no limitations History of Present Illness HPI Narrative: 85-year-old female She was sent from [facility] for a possible fall And indeed she did fall several days ago and was seen here and has a known clavicle fracture It is unclear why she was thought to a fall and today since nobody saw her fall and nobody found her down on the ground and in fact she was said to have been found in her bed talking about having fallen She mentions that she fell and hurt her shoulder and was seen in [place] twice to me in the space of about 5 minutes There do not seem to be any other problems or complaints Related Data Home Medications Medication Instructions Recorded Confirmed budesonide 0.5 mg/2 mL suspension 0.5 mg INHALATION BID ml 08/14/19 03/31/21 for nebulization cholecalciferol (vitamin D3) 50 2,000 unit PO DAILY 08/14/19 03/31/21 mcg (2,000 unit) tablet memantine 10 mg tablet 10 mg PO QPM 02/21/21 03/31/21 Allergies Allergy/AdvReac Type Severity Reaction Status Date / Time No Known Allergies Allergy Verified 06/22/21 19:56 Review of Systems Cardiovascular: Cardiovascular: Denies chest pain Respiratory: Respiratory: Denies dyspnea Gastrointestinal: Gastrointestinal: Denies abdominal pain Musculoskeletal: Musculoskeletal: Reports arthralgias and Reports joint swelling PMFSH Past Medical History Medical History Anxiety Chronic respiratory failure with hypoxia Colon cancer COPD (chronic obstructive pulmonary disease) Depression High cholesterol Myasthenia gravis Osteoporosis Surgical History Surgical History History of appendectomy History of cholecystectomy History of colon surgery For colon cancer. Family History Family History Mother Cerebrovascular accident Father Heart disease Social History Social History Social History: The patient is . She lives in her own home in [place]. She has 4 children. One of her daughters frequently stays at home with her as she gets anxious at nighttime. 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 She smoked < half pack of cigarettes for several years in her teens and 20s. No alcohol or drug use. Her daughter Mary is her healthcare power of document review attorney. The patient wishes to be a full code. Years smoked: 20 Smoking status: Former smoker Smoking end date: 08/13/62 Alcohol intake: never Substance use: never Gender identity (if verbalized by the patient): Female Spiritual care concerns: No Agree to blood products: Yes Exam Const: General: cooperative, no acute distress and alert Other: Frail, elderly HENMT: Head: normal to inspection, normocephalic, atraumatic, no contusions, no hematomas and no lacerations Ears: external ears normal General nose exam: no epistaxis Other: No tenderness Eyes: Conjunctivae: conjunctivae normal EOM: EOMs intact bilaterally Neck: Neck: normal visual inspection, supple and no JVD Other: No tenderness Chest: Other: Bruising upper right chest and clavicle Resp: Effort & Inspection: normal respiratory effort and not labored Auscultation: clear to auscultation bilaterally, no rales, no rhonchi, no wheezes and other (BS =) Cardio: Rate: regular rate Rhythm: regular rhythm Heart sounds: no murmurs GI: GI Palp: Yes Soft to palpation and No Tenderness to palpation present (GI) Back/Spine/Pelvis: Back: no CVA tenderness Skin: General skin exam: normal color and no rashes or lesions noted Neuro: General: moves all extremities Speech: normal speech Extrem: Other: Le
--- NOTE | 2021-06-22 21:02 | PC.NURSE ---
Pt to XR via stretcher at this time.
[2021-06-22 21:49] VITALS: BP 120/78; PULSE 79; RESP 21; O2SAT 98
== END 2021-06-22 21:52 ==
PROVIDERS: Emergency Provider Emergency Medicine; PCP Internal Medicine
DX: S42.031A Displaced fracture of lateral end of right clavicle, initial encounter for closed fracture (principal); F41.9 Anxiety disorder, unspecified; J44.9 Chronic obstructive pulmonary disease, unspecified; F32.9 Major depressive disorder, single episode, unspecified; E78.5 Hyperlipidemia, unspecified; W19.XXXA Unspecified fall, initial encounter
CPT/HCPCS: 71045; 73000; 99284

== ENCOUNTER 2021-06-25 18:17 | Inpatient (IN) | payer MEDICARE, SELFPAY ==
[2021-06-25] VITALS (8 sets, daily range): BP systolic 103–122; BP diastolic 58–78; PULSE 68–118; RESP 18–25; TEMP 36.9; O2SAT 96–100
--- NOTE | ~2021-06-25 | XR_ITS ---
EXAMINATION: XR chest 1V portable INDICATION: Hypoxia TECHNIQUE: Portable AP chest at 1853 hours COMPARISON: 06/22/2021 FINDINGS: The lungs are hyperinflated. There are patchy opacities throughout the lungs. No pleural ef fusion or pneumothorax is identified. The heart size is normal. There are multiple compression fractu res of the spine. IMPRESSION: 1. Patchy opacities throughout the lungs which could reflect atelectasis versus pneumonia. Reviewed, dictated and finalized at location A. N ENERGY MARKETING ANALYST
--- NOTE | ~2021-06-25 | CT_ITS ---
EXAMINATION: CTA chest PE protocol DATE: 06/25/2021 23:35 INDICATION: Hypoxia TECHNIQUE: Computed tomography angiography (CTA) of the chest was performed with 100 mL Omnipaque-350 intravenous contrast timed to evaluate the pulmonary arteries. Coronal maximum intensity projection 3D-reconstructions were created by the technologist. The dose-length product (DLP) was 139.82 mGy-cm. Automated exposure control and iterative reconstruction technique were employed. COMPARISON: None. FINDINGS: The pulmonary arteries are well-opacified. No pulmonary embolism is identified. There is mo derate emphysema. There are calcified and noncalcified nodules scattered throughout the lungs. The la rgest noncalcified nodule is a 13 mm nodule of the right middle lobe. There is no pleural effusion or pneumothorax. Cardiomegaly is noted. Calcified coronary artery atherosclerosis is noted. There is en largement of the main and central pulmonary arteries, consistent with pulmonary hypertension. Fluid a ttenuation lesions of the liver measuring up to 1.8 cm in the right hepatic lobe likely represent cys ts. There are multiple age-indeterminate thoracic and lumbar compression fractures. There is an age-i ndeterminate burst fracture of L2. There is a partially imaged acute fracture of the right distal cla vicle. IMPRESSION: 1. No pulmonary embolus identified. 2. Multiple nodules throughout the lungs measuring up to 13 mm which could be infectious or inflammat ory however metastatic disease would have a similar appearance. Follow-up CT in three months is recom mended. 3. Multiple age-indeterminate compression and burst fractures of thoracic and lumbar spine. 4. Moderate emphysema. Reviewed, dictated and finalized at location A. OR OF NURSING PRACTICE IMPRESSION: 1. No pulmonary embolus identified. 2. Multiple nodules throughout the lungs measuring up to 13 mm which could be i nfectious or inflammatory however metastatic disease would have a similar appea rachid. Follow-up CT in three months is recommended. 3. Multiple age-indeterminate compression and burst fractures of thoracic and l umbar spine. 4. Moderate emphysema.
--- NOTE | 2021-06-25 18:43 | ECG_ITS ---
Measurements Intervals [place] Rate: 114 P: [place]: 0 QRS: 57 QRSD: 99 T: 12 QT: 214 QTc: 295 Interpretive Statements MULTIFOCAL ATRIAL TACHYCARDIA ATRIAL PREMATURE COMPLEXES ANTEROSEPTAL INFARCT, AGE INDETERMINATE BORDERLINE ST-T WAVE ABNORMALITY- INF/LAT LEADS BASELINE ARTIFACT- I, II, III, AVR, AVL, AVF, V1-V6 ABNORMAL ECG Electronically Signed On 06-26-2021 7:27:17 HYDRAULIC TESTER by Rashad Hoyos D.O.
--- NOTE | 2021-06-25 18:45 | PC.NURSE ---
Spo2 on 4L NC maintains 95-87%, when pulls cannula off SpO2 drops to 82%.
--- NOTE | 2021-06-25 18:51 | ED.GENADULT ---
HPI - General Adult General Chief complaint: Shortness of Breath/Dyspnea <Didier Frederick CINTHIA Martinez BC - Last Filed: 06/25/21 22:19> Stated complaint: SOB <Didier Frederick CINTHIA Martinez BC - Last Filed: 06/25/21 22:19> Time Seen by Provider: 06/25/21 18:30 <Didier Frederick CINTHIA Martinez BC - Last Filed: 06/25/21 22:19> Source: EMS <Didier Frederick Michelle ERIC VICENTE - Last Filed: 06/25/21 22:19> Mode of arrival: EMS <Didier Frederick CINTHIA Martinez BC - Last Filed: 06/25/21 22:19> Limitations: dementia <Didier Frederick CINTHIA Martinez BC - Last Filed: 06/25/21 22:19> History of Present Illness HPI narrative: Patient brought in by EMS with reports of shortness of breath. She resides at [facility]. Report I received from nursing staff indicate that patient was found to have O2 saturations in the 50s at facility today. Personnel with facility where she resides contacted EMS and upon arrival here in the ER her saturations were in the 70s. Patient has an underlying history of COPD and chronic hypercapnic hypoxemic respiratory failure. She typically wears oxygen at 2 L per nasal cannula at home. She is under the care of Dr. Jr Shearer and saw him last in March of this year. Documentation indicates that patient had a CT of her chest in June 2015 that showed multiple pulmonary nodules. Chest x-ray from 09/01 showed pulmonary vascular congestion and cardiomegaly. Echocardiogram from August 2019 showed an ejection fraction of 60 to 65%. She was seen here on 06/18/2021 after sustaining a fall, at which time she sustained a right clavicle fracture. She was seen here again on 06/22/2021 for questionable fall. However, documentation at that time indicated that there was no evidence of new fall or injury at that time. At the time of my initial evaluation, pt is awake, alert, oriented to person and place but confused about time. She does not answer the majority of my questions appropriately. <Didier Frederick CINTHIA Martinez BC - Last Filed: 06/25/21 22:19> Related Data Home medications: Home Medications Medication Instructions Recorded Confirmed budesonide 0.5 mg/2 mL suspension 0.5 mg INHALATION BID ml 08/14/19 03/31/21 for nebulization cholecalciferol (vitamin D3) 50 2,000 unit PO DAILY 08/14/19 03/31/21 mcg (2,000 unit) tablet memantine 10 mg tablet 10 mg PO QPM 02/21/21 03/31/21 <CINTHIA Mcnally BC - Last Filed: 06/25/21 22:19> Allergies/adverse reactions: Allergies Allergy/AdvReac Type Severity Reaction Status Date / Time No Known Allergies Allergy Verified 06/22/21 19:56 <CINTHIA Mcnally BC - Last Filed: 06/25/21 22:19> Review of Systems Review of Systems: ROS unobtainable: Yes unobtainable due to mental status <CINTHIA Mcnally BC - Last Filed: 06/25/21 22:19> [facility] Past Medical History Medical History: Medical History Anxiety Chronic respiratory failure with hypoxia Colon cancer COPD (chronic obstructive pulmonary disease) Depression High cholesterol Myasthenia gravis Osteoporosis <CINTHIA Mcnally BC - Last Filed: 06/25/21 22:19> Surgical History Surgical History: Surgical History History of appendectomy History of cholecystectomy History of colon surgery For colon cancer. <CINTHIA Mcnally BC - Last Filed: 06/25/21 22:19> Family History Family History: Family History Mother Cerebrovascular accident Father Heart disease <CINTHIA Mcnally BC - Last Filed: 06/25/21 22:19> Social History Social History: Social History Social History: The patient is . She lives in her own home in [place]. She has 4 children. One of her daughters frequently
[2021-06-25 19:00] LABS: Base Excess ABG 14.5 mEq/l (+/-2.0); Fractional Inspired Oxygen 36 %; HCO3 ABG 44.6 mEq/l (22.0-26.0); Oxygen Content ABG 16.9 %vol (16.0-22.0); Oxygen Saturation ABG 98.8 % (95.0-100.0); Oxyhemoglobin 97.5 % THb (90.0-100.0); PO2 ABG 162.1 mmHg (80.0-100.0); Total Hemoglobin 12.1 g/dL (12.0-18.0); pH ABG 7.304 (7.350-7.450)
[2021-06-25 19:01] LABS: Device NASAL CANNULA; Modified Allen's Test Pass; PCO2 ABG 91.9 mmHg (35.0-45.0); Site Drawn LEFT RADIAL
[2021-06-25 19:22] LABS: Basophils Percent Auto 0.5 % (0.2-1.2); Eosinophils Percent Auto 0.5 % (0-4.4); Hematocrit 37.8 % (37.0-47.0); Immature Granulocyte Absolute 0.02 K/mm3 (0.00-0.031); Immature Granulocyte Percent A 0.3 % (0-0.5); Lymphocytes Absolute Auto 0.22 K/mm3 (0.9-3.2); Lymphocytes Percent Auto 3.5 % (18.3-44.2); Mean Corpuscular HGB Conc 29.1 g/dl (32-36); Mean Platelet Volume 9.2 fl (7.4-10.4); Monocytes Absolute Auto 0.5 K/mm3 (0.1-0.6); Monocytes Percent Auto 7.5 % (2.6-8.5); Neutrophils Absolute Auto 5.5 K/mm3 (1.3-6.7); Neutrophils Percent Auto 87.7 % (45.5-73.1); Platelet Count Result 182 k/mm3 (150-375); Red Blood Count 3.67 M/mm3 (4.2-5.4); Red Cell Distribution Width 13.2 % (11.5-14.5); White Blood Count 6.2 K/mm3 (4.5-10.0)
[2021-06-25 19:33] LABS: Alanine Aminotransferase 21 U/L (4-35); Albumin Level 4.3 g/dL (3.5-5.1); Alkaline Phosphatase 71 U/L (38-126); Aspartate Amino Transferase 28 U/L (14-36); Bilirubin,Total 0.4 mg/dL (0.2-1.3); Blood Urea Nitrogen 32 mg/dL (7-17); Calcium 9.9 mg/dL (8.4-10.2); Carbon Dioxide > 40 mmol/L (22-30); Chloride 96 mmol/L (98-107); Estimated CRCL calculation 54 ml/min; Estimated Glomerular Filt Rate > 60; Glucose 171 mg/dL (65-110); Potassium 3.7 mmol/L (3.4-5.0); Sodium 144 mmol/L (137-145)
[2021-06-25 19:47] LABS: NT Pro B Type Natriuretic Pept 299 pg/mL (5-100); Troponin I 0.148 ng/mL (0.000-0.034)
[2021-06-25 20:52] LABS: Prothrombin Time 12.8 Seconds (11.1-14.7)
[2021-06-25 20:53] LABS: Partial Thromboplastin Time 25.6 SECONDS (22.3-36.8)
[2021-06-25 20:55] LABS: D Dimer 1.07 ug/mL (<0.48)
[2021-06-25 22:39] LABS: Troponin I 0.296 ng/mL (0.000-0.034)
[2021-06-25 23:56] LABS: Base Excess ABG 15.9 mEq/l (+/-2.0); Fractional Inspired Oxygen 36 %; HCO3 ABG 46.3 mEq/l (22.0-26.0); Oxygen Saturation ABG 99.5 % (95.0-100.0); Oxyhemoglobin 98.5 % THb (90.0-100.0); PO2 ABG 285.4 mmHg (80.0-100.0)
[2021-06-25 23:57] LABS: Device NASAL CANNULA; Modified Allen's Test Pass; PCO2 ABG 99.6 mmHg (35.0-45.0); Site Drawn LEFT RADIAL; pH ABG 7.285 (7.350-7.450)
[2021-06-26] VITALS (22 sets, daily range): BP systolic 93–144; BP diastolic 49–73; PULSE 61–843; RESP 16–25; TEMP 35.9–37.2; O2SAT 93–100; BMI 15.1
--- NOTE | 2021-06-26 00:30 | PM.IMHP ---
H&P: HPI History of Present Illness Date/Time: 06/26/21 00:30 Chief Complaint: Shortness of breath Narrative: This is an 85-year-old female that resides at a long-term in the memory care unit past medical history significant for dementia COPD/emphysema chronic hypoxic hypercarbic respiratory failure on supplemental oxygen at home, recurrent falls, right clavicle fracture. Patient was brought today to the emergency room after staff concerns after patient was found saturating in the 50s on pulse oximetry EMS was called and upon arrival the documented oxygen saturation to be at 70%. Patient was brought to the emergency room where she was placed on BiPAP she was also given breathing treatments at the time of my visit patient was pleasantly demented agitated restless and confused had pulled out her IV patient is only oriented to person and was on BiPAP. Preliminary workup was significant for ABG was 7.3 pCO2 was 90 PO2 was 162 a chest x-ray showed patchy pulmonary opacities. Patient has been admitted for further management, evaluation and treatment. Review of Systems Review of Systems: ROS unobtainable: Yes unobtainable due to medical condition (Patient is on BiPAP) and unobtainable due to mental status (Pleasantly demented) [facility] Past Medical History Medical History Anxiety Chronic respiratory failure with hypoxia Colon cancer COPD (chronic obstructive pulmonary disease) Depression High cholesterol Myasthenia gravis Osteoporosis Surgical History Surgical History History of appendectomy History of cholecystectomy History of colon surgery For colon cancer. Family History Family History Mother Cerebrovascular accident Father Heart disease Social History Social History Social History: The patient is . She lives in her own home in [place]. She has 4 children. One of her daughters frequently stays at home with her as she gets anxious at nighttime. 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 She smoked < half pack of cigarettes for several years in her teens and 20s. No alcohol or drug use. Her daughter Mary is her healthcare power of finance attorney. The patient wishes to be a full code. Years smoked: 20 Smoking status: Former smoker Tobacco type: cigarettes Second hand tobacco smoke exposure: Yes Smoking end date: 08/13/62 Alcohol intake: never Substance use: never Gender identity (if verbalized by the patient): Female Spiritual care concerns: No Agree to blood products: Yes Meds Home Medications and Allergies Home Medications Medication Instructions Recorded Confirmed Type budesonide 0.5 mg/2 mL suspension 0.5 mg INHALATION BID ml 08/14/19 03/31/21 History for nebulization cholecalciferol (vitamin D3) 50 2,000 unit PO DAILY 08/14/19 03/31/21 History mcg (2,000 unit) tablet hydroxyzine HCl 25 mg tablet 25 mg PO Q6-8H PRN #30 tablet 10/13/19 03/31/21 Rx sertraline 25 mg tablet 25 mg PO HS #90 tablet 11/26/20 03/31/21 Rx ipratropium bromide 0.02 % See Rx Instructions .ROUTE 02/08/21 03/31/21 Rx solution for inhalation .COMPLEX #62.5 ml memantine 10 mg tablet 10 mg PO QPM 02/21/21 03/31/21 History bimatoprost 0.01 % eye drops 1 drp EACH EYE QPM #7.5 ml 03/29/21 03/31/21 Rx albuterol sulfate 90 mcg/actuation See Rx Instructions .ROUTE 04/05/21 Rx aerosol inhaler .COMPLEX #18 inhaler ferrous sulfate 325 mg (65 mg 325 mg PO DAILY #90 tablet 05/30/21 Rx iron) tablet rosuvastatin 20 mg tablet 20 mg PO DAILY #90 tablet 06/10/21 Rx acetaminophen 1,000 mg PO Q8H PRN 06/26/21 06/26/21 History Allergies Allergy/AdvReac Type Severity Reaction Status Date / Time No Known Allergies Allergy Verified 06/22/21 19:56 Vital
--- NOTE | 2021-06-26 01:50 | ADMGEN ---
This patient, Liseth Linder, was admitted to IMU Room 203-01. Patient/family oriented to hospital policies and general routines including ID bracelet, bed and alarms, visiting hours, pain management, procedures, bathroom and other care routines, personal items, smoking policy, room service/diet, and visiting hours. Information on how to activate the Rapid Response Team has been discussed. Patient/Family are encouraged to report perceived risks to care and to ask questions if they do not understand what they are told or what they should do.
[2021-06-26] MEDS: IPRATROPIUM BR 0.02% INH SOLN 0.5 MG/2.5 ML VIAL INHALATION ×4 (02:13→19:55)
[2021-06-26] MEDS: ALBUTEROL SULFATE NEB 2.5 MG/0.5 ML INH 5 MG INHALATION ×4 (02:13→19:55)
[2021-06-26 04:34] LABS: Alveolar/Arterial O2 Gradient 52.4 mmHg; Base Excess ABG 11.1 mEq/l (+/-2.0); Carboxyhemoglobin 0.3 % THb (0-2.0); Fractional Inspired Oxygen 30 %; HCO3 ABG 39.2 mEq/l (22.0-26.0); Methemoglobin ABG 0.3 %THb (0-1.5); Oxygen Content ABG 14.9 %vol (16.0-22.0); Oxygen Saturation ABG 93.9 % (95.0-100.0); Oxyhemoglobin 94.4 % THb (90.0-100.0); PO2 ABG 75.6 mmHg (80.0-100.0); PO2 FiO2 Ratio Arterial Blood 2.52 %; Total Hemoglobin 11.2 g/dL (12.0-18.0); pH ABG 7.347 (7.350-7.450)
[2021-06-26 04:38] LABS: Device NON-INVASIVE VENT; Modified Allen's Test Pass; PCO2 ABG 73.1 mmHg (35.0-45.0); Site Drawn LEFT RADIAL
[2021-06-26 04:39] LABS: Non-Invasive Expiratory Pressure 6 CMH2O; Non-Invasive Inspiratory Pressure 16 CMH2O; Non-Invasive Vent Rate 16 /MIN
[2021-06-26] MEDS: methylPREDNISolone SOD SUCC 125 MG VIAL 60 MG IV PUSH (05:45)
[2021-06-26] MEDS: BUDESONIDE RESPULE NEB 0.5 MG/2 ML AMP INHALATION ×2 (09:14→19:55)
--- NOTE | 2021-06-26 10:08 | PM.IMPN ---
Progress Note: A&P Assessment and Plan (1) Acute on chronic respiratory failure with hypoxia and hypercapnia: Code(s): J96.21 - Acute and chronic respiratory failure with hypoxia; J96.22 - Acute and chronic respiratory failure with hypercapnia Status: Acute Assessment and Plan: 06/26 NO LONGER REQUIRING CONTINUOUS BIPAP; ALERT AND ABLE TO SPEAK IN COMPLETE SENTENCES CONTINUE OXYGEN BY NASAL CANNULA AND WEAN TO BASELINE TOLERATED (2) COPD (chronic obstructive pulmonary disease): Qualifiers: COPD type: unspecified COPD Qualified Code(s): J44.9 - Chronic obstructive pulmonary disease, unspecified Code(s): J44.9 - Chronic obstructive pulmonary disease, unspecified Status: Acute Assessment and Plan: IMPROVING WITH STEROIDS AND NEBULIZED BRONCHODILATORS 06/26 DECREASE SOLU-MEDROL TO 30 MG IV Q.12 HOURS (3) Opacities of both lungs present on chest x-ray: Code(s): R91.8 - Other nonspecific abnormal finding of lung field Status: Acute Assessment and Plan: PNEUMONIA LIKELY NEOPLASM LESS LIKELY CONTINUE AZITHROMYCIN AND CEFTRIAXONE CONSIDER FOLLOW-UP CHEST IMAGING OUTPATIENT, HOWEVER SHE IS A POOR CANDIDATE FOR ANYTHING OTHER THAN MEDICAL THERAPY (4) Gait instability: Code(s): R26.81 - Unsteadiness on feet Status: Acute Assessment and Plan: PT OT (5) Dementia: Qualifiers: Dementia type: unspecified type Dementia behavioral disturbance: without behavioral disturbance Qualified Code(s): F03.90 - Unspecified dementia without behavioral disturbance Code(s): F03.90 - Unspecified dementia without behavioral disturbance Status: Acute Assessment and Plan: Continue memantine Subjective Date/time seen: 06/26/21 10:08 Interval history: 85-year-old female former smoker with COPD and oxygen dependence was admitted June 25 with increased dyspnea and hypercarbia as well as hypoxemia. 06/26 visit: Feels much better. Tolerated diet. On nasal cannula. One ask if she needed anything she replied, A stack of $100 bills. Denied chest pain or shortness of breath at rest. Admits the dyspnea on exertion with minimal exertion. Denied GI or complaints. Review of Systems Review of Systems: All systems reviewed & are unremarkable except as noted in HPI and below Exam Narrative: HEENT: EOMI, PERRL, sclerae nonicteric, pharyngeal mucosa pink and intact NECK: No JVD CHEST: Coarse breath sounds throughout with scattered crackles most prominent in the right lower lobe HEART: NL S1/S2, regular, no murmur ABDOMEN: BS+, soft, nontender, no mass, no bruits EXTREMITIES: No cyanosis, edema, or clubbing NEUROLOGIC: CN intact and symmetric to inspection. MUSCULOSKELETAL: Tone and strength symmetric. PSYCH: Alert. Oriented to person. Pleasant and cooperative. Objective Data Vital Signs Vital Signs: Vital Signs - 24 hr 06/25/21 18:25 06/25/21 18:29 06/25/21 19:00 Temperature 98.5 F Pulse Rate 118 H 68 Respiratory Rate 23 H 22 H Blood Pressure 103/58 L 122/70 Pulse Oximetry 97 100 98 06/25/21 20:00 06/25/21 21:00 06/25/21 22:00 Temperature Pulse Rate 82 78 80 Respiratory Rate 18 22 H 24 H Blood Pressure 112/76 110/78 110/72 Pulse Oximetry 98 96 98 06/25/21 22:17 06/25/21 23:00 06/26/21 00:38 Temperature Pulse Rate 84 72 74 Respiratory Rate 25 H 20 17 Blood Pressure 107/68 115/61 Pulse Oximetry 99 100 98 06/26/21 02:00 06/26/21 02:15 06/26/21 02:21 Temperature 97 F L Pulse Rate 71 87 66 Respiratory Rate 20 17 17 Blood Pressure 93/54 L Pulse Oximetry 99 93 06/26/21 02:24 06/26/21 04:00 06/26/21 05:07 Temperature 97.6 F Pulse Rate 84 77 74 Respiratory Rate 18 20 25 H Blood Pressure 111/49 L Pulse Oximetry 97 96 06/26/21 06:00 06/26/21 08:00 06/26/21 08:41 Temperature 96.6 F L Pulse Rate 76 81 Respiratory Rate 18 Blood Pressure 123/67 Pulse Oximetry 95 9
[2021-06-26] MEDS: MEMANTINE 10 MG TABLET PO (18:34)
[2021-06-26] MEDS: LATANOPROST 0.005% OP SOLN 2.5 ML BTL 1 DROP EACH EYE (18:34)
[2021-06-26] MEDS: methylPREDNISolone SOD SUCC 40 MG VIAL 30 MG IV PUSH (21:11)
--- NOTE | 2021-06-26 23:22 | PC.NURSE ---
This patient, Liseth Linder, was transferred to [[id number] ] on 06/26/21 at 2322. Personal belongings sent with patient. Report given to [Melanie ]. Appropriate documentation sent with patient.
--- NOTE | 2021-06-26 23:48 | PC.NURSE ---
This patient, Liseth Linder, was received from [facility] 203 Report taken from Jimmy CONSTANTINO. on 06/26/21 at 9501. Patient/family oriented to unit policies and routines
[2021-06-27] VITALS (18 sets, daily range): BP systolic 115–161; BP diastolic 61–72; PULSE 54–99; RESP 18–33; TEMP 36–36.5; O2SAT 93–100; BMI 14.5
[2021-06-27] MEDS: IPRATROPIUM BR 0.02% INH SOLN 0.5 MG/2.5 ML VIAL INHALATION ×4 (02:21→19:33)
[2021-06-27] MEDS: ALBUTEROL SULFATE NEB 2.5 MG/0.5 ML INH 5 MG INHALATION ×4 (02:22→19:33)
[2021-06-27 06:49] LABS: Hematocrit 34.9 % (37.0-47.0); Hemoglobin 10.6 g/dL (12.0-15.0); Mean Corpuscular HGB Conc 30.4 g/dl (32-36); Mean Corpuscular Hemoglobin 29.6 pg (26-34); Mean Corpuscular Volume 97.5 fl (80-100); Mean Platelet Volume 9.6 fl (7.4-10.4); Platelet Count Result 219 k/mm3 (150-375); Red Blood Count 3.58 M/mm3 (4.2-5.4); Red Cell Distribution Width 12.9 % (11.5-14.5); White Blood Count 4.1 K/mm3 (4.5-10.0)
[2021-06-27 07:15] LABS: Blood Urea Nitrogen 20 mg/dL (7-17); Calcium 9.4 mg/dL (8.4-10.2); Carbon Dioxide > 40 mmol/L (22-30); Chloride 94 mmol/L (98-107); Estimated CRCL calculation 48 ml/min; Estimated Glomerular Filt Rate > 60; Glucose 121 mg/dL (65-110); Potassium 4.3 mmol/L (3.4-5.0); Sodium 140 mmol/L (137-145)
[2021-06-27] MEDS: FERROUS SULFATE 324 MG TABLET PO (08:48)
[2021-06-27] MEDS: ACETAMINOPHEN 500 MG TABLET 1000 MG PO (08:49)
[2021-06-27] MEDS: ROSUVASTATIN 10 MG TABLET 20 MG PO (08:49)
[2021-06-27] MEDS: CHOLECALCIFEROL 1,000 UNITS TABLET 2000 UNITS PO (08:49)
[2021-06-27] MEDS: methylPREDNISolone SOD SUCC 40 MG VIAL 30 MG IV PUSH ×2 (08:49→21:59)
[2021-06-27] MEDS: BUDESONIDE RESPULE NEB 0.5 MG/2 ML AMP INHALATION ×2 (09:04→19:34)
--- NOTE | 2021-06-27 11:41 | PM.IMPN ---
Progress Note: A&P Assessment and Plan (1) Acute on chronic respiratory failure with hypoxia and hypercapnia: Code(s): J96.21 - Acute and chronic respiratory failure with hypoxia; J96.22 - Acute and chronic respiratory failure with hypercapnia Status: Acute Assessment and Plan: S/p CONTINUOUS BIPAP Now on 2.5 L Wean as tolerated to keep sats >92% (2) COPD (chronic obstructive pulmonary disease): Qualifiers: COPD type: unspecified COPD Qualified Code(s): J44.9 - Chronic obstructive pulmonary disease, unspecified Code(s): J44.9 - Chronic obstructive pulmonary disease, unspecified Status: Acute Assessment and Plan: Continue with IV solumedrol, to taper Continue nebs (3) Opacities of both lungs present on chest x-ray: Code(s): R91.8 - Other nonspecific abnormal finding of lung field Status: Acute Assessment and Plan: PNEUMONIA LIKELY NEOPLASM LESS LIKELY Continue Azithromycin and ceftriaxon Consider repeat imaging outpatient (4) Gait instability: Code(s): R26.81 - Unsteadiness on feet Status: Acute Assessment and Plan: PT/OT (5) Dementia: Qualifiers: Dementia type: unspecified type Dementia behavioral disturbance: without behavioral disturbance Qualified Code(s): F03.90 - Unspecified dementia without behavioral disturbance Code(s): F03.90 - Unspecified dementia without behavioral disturbance Status: Acute Assessment and Plan: Continue memantine Subjective Date/time seen: 06/27/21 11:41 Review of Systems Review of Systems: All systems reviewed & are unremarkable except as noted in HPI and below Exam Const: General: no acute distress, alert and awake HENMT: Head: normocephalic and atraumatic Ears: hearing grossly normal bilaterally and external ears normal Face and sinus: face symmetric Mouth: Yes Normal oral and palatal mucosa present Eyes: EOM: EOMs intact bilaterally Neck: Neck: full ROM, trachea midline and no JVD Chest: Chest palpation & inspection: normal inspection of the chest Resp: Effort & Inspection: normal respiratory effort Auscultation: clear to auscultation bilaterally Cardio: Jugular venous distension: no JVD Rate: regular rate Rhythm: regular rhythm Heart sounds: S1 normal heart sound present and S2 normal heart sound present GI: Inspection: normal to inspection GI Palp: Yes Soft to palpation Percussion: Yes normal to percussion Auscultation: normal bowel sounds : General: Yes no CVA tenderness Back/Spine/Pelvis: Back: no CVA tenderness Skin: General skin exam: normal color Rashes: no rashes Neuro: General: oriented to person Speech: normal speech Extrem: General: full ROM and no clubbing, cyanosis or edema Objective Data Vital Signs Vital Signs: Vital Signs - 24 hr 06/26/21 13:32 06/26/21 13:41 06/26/21 17:32 Temperature 37.2 C Pulse Rate 82 843 H 89 Respiratory Rate 16 16 24 H Blood Pressure 121/65 Pulse Oximetry 100 06/26/21 19:55 06/26/21 20:00 06/26/21 20:07 Temperature 36.6 C Pulse Rate 87 84 88 Respiratory Rate 16 16 16 Blood Pressure 133/73 Pulse Oximetry 98 99 06/26/21 23:25 06/26/21 23:50 06/27/21 02:24 Temperature 35.9 C L Pulse Rate 61 81 Respiratory Rate 18 20 Blood Pressure 144/63 H Pulse Oximetry 97 99 06/27/21 02:38 06/27/21 05:26 06/27/21 06:00 Temperature 36.0 C L Pulse Rate 84 82 54 L Respiratory Rate 33 H 22 H 18 Blood Pressure 115/64 Pulse Oximetry 97 96 97 06/27/21 09:06 06/27/21 09:08 06/27/21 09:18 Temperature Pulse Rate 90 80 Respiratory Rate 20 20 Blood Pressure Pulse Oximetry 97 06/27/21 11:31 Temperature Pulse Rate Respiratory Rate Blood Pressure 161/61 H Pulse Oximetry 98 Intake/Output Intake/Output: Intake & Output 06/24/21 06/25/21 06/26/21 06/27/21 23:59 23:59 23:59 23:59 Intake Total 300 520 120 Output Total 525 200
--- NOTE | 2021-06-27 13:40 | PCNSR ---
On 06/27/21, the student, Alaina Montes, provided care and completed [facility] documentation on this patient. I have reviewed the student's documentation and agree with the findings.
[2021-06-27] MEDS: MEMANTINE 10 MG TABLET PO (18:07)
[2021-06-27] MEDS: LATANOPROST 0.005% OP SOLN 2.5 ML BTL 1 DROP EACH EYE (18:07)
[2021-06-27] MEDS: SERTRALINE HCL 25 MG TABLET PO (22:00)
[2021-06-28] VITALS (17 sets, daily range): BP systolic 121–139; BP diastolic 66–82; PULSE 72–106; RESP 16–28; TEMP 36.2–36.4; O2SAT 93–100
[2021-06-28] MEDS: IPRATROPIUM BR 0.02% INH SOLN 0.5 MG/2.5 ML VIAL INHALATION ×4 (01:29→20:58)
[2021-06-28] MEDS: ALBUTEROL SULFATE NEB 2.5 MG/0.5 ML INH 5 MG INHALATION ×4 (01:29→20:58)
[2021-06-28 07:28] LABS: Blood Urea Nitrogen 24 mg/dL (7-17); Calcium 10.1 mg/dL (8.4-10.2); Carbon Dioxide > 40 mmol/L (22-30); Chloride 96 mmol/L (98-107); Estimated CRCL calculation 61 ml/min; Estimated Glomerular Filt Rate > 60; Glucose 135 mg/dL (65-110); Potassium 4.3 mmol/L (3.4-5.0); Sodium 140 mmol/L (137-145)
[2021-06-28] MEDS: ROSUVASTATIN 10 MG TABLET 20 MG PO (08:26)
[2021-06-28] MEDS: FERROUS SULFATE 324 MG TABLET PO (08:26)
[2021-06-28] MEDS: CHOLECALCIFEROL 1,000 UNITS TABLET 2000 UNITS PO (08:26)
[2021-06-28] MEDS: methylPREDNISolone SOD SUCC 40 MG VIAL 30 MG IV PUSH (08:27)
[2021-06-28] MEDS: BUDESONIDE RESPULE NEB 0.5 MG/2 ML AMP INHALATION ×2 (08:52→20:58)
--- NOTE | 2021-06-28 10:26 | PC.NURSE ---
On 06/28/21, the student, [Vivi Wheeler ], provided care and completed [facility] documentation on this patient. I have reviewed the student's documentation and agree with the findings.
--- NOTE | 2021-06-28 14:28 | PM.IMPN ---
Progress Note: A&P Assessment and Plan (1) Acute on chronic respiratory failure with hypoxia and hypercapnia: Code(s): J96.21 - Acute and chronic respiratory failure with hypoxia; J96.22 - Acute and chronic respiratory failure with hypercapnia Status: Acute Assessment and Plan: S/p CONTINUOUS BIPAP Continues on 2.5 L Wean as tolerated to keep sats >92% (2) COPD (chronic obstructive pulmonary disease): Qualifiers: COPD type: unspecified COPD Qualified Code(s): J44.9 - Chronic obstructive pulmonary disease, unspecified Code(s): J44.9 - Chronic obstructive pulmonary disease, unspecified Status: Acute Assessment and Plan: S/p IV solumedrol, Will change to po steroids, to taper Continue nebs (3) Opacities of both lungs present on chest x-ray: Code(s): R91.8 - Other nonspecific abnormal finding of lung field Status: Acute Assessment and Plan: PNEUMONIA LIKELY NEOPLASM LESS LIKELY Continue Azithromycin and ceftriaxon Consider repeat imaging outpatient (4) Gait instability: Code(s): R26.81 - Unsteadiness on feet Status: Acute Assessment and Plan: PT/OT (5) Dementia: Qualifiers: Dementia type: unspecified type Dementia behavioral disturbance: without behavioral disturbance Qualified Code(s): F03.90 - Unspecified dementia without behavioral disturbance Code(s): F03.90 - Unspecified dementia without behavioral disturbance Status: Acute Assessment and Plan: Continue memantine Subjective Date/time seen: 06/28/21 14:28 Interval history: 85-year-old female former smoker with COPD and oxygen dependence was admitted June 25 with increased dyspnea and hypercarbia as well as hypoxemia. 06/26 visit: Feels much better. Tolerated diet. On nasal cannula. One ask if she needed anything she replied, A stack of $100 bills. Denied chest pain or shortness of breath at rest. Admits the dyspnea on exertion with minimal exertion. Denied GI or complaints. 06/27: pt seen and evaluated; labs, vs, diagnostic reports reviewed 06/28: pt seen this a.m.; confused; pt was did not rest well last evening; according to nursing staff Review of Systems Review of Systems: All systems reviewed & are unremarkable except as noted in HPI and below Exam Const: General: no acute distress, alert and awake Orientation/consciousness: oriented to person HENMT: Head: normocephalic and atraumatic Ears: hearing grossly normal bilaterally and external ears normal Face and sinus: face symmetric Mouth: Yes Normal oral and palatal mucosa present Eyes: EOM: EOMs intact bilaterally Neck: Neck: full ROM, trachea midline and no JVD Chest: Chest palpation & inspection: normal inspection of the chest Resp: Effort & Inspection: normal respiratory effort Auscultation: clear to auscultation bilaterally and diminished lung sounds Cardio: Jugular venous distension: no JVD Rate: regular rate Rhythm: regular rhythm Heart sounds: S1 normal heart sound present and S2 normal heart sound present GI: Inspection: normal to inspection Auscultation: normal bowel sounds : General: Yes no CVA tenderness Back/Spine/Pelvis: Back: no CVA tenderness Skin: General skin exam: normal color Rashes: no rashes Neuro: General: oriented to person Speech: normal speech Extrem: General: full ROM and no clubbing, cyanosis or edema Objective Data Vital Signs Vital Signs: Vital Signs - 24 hr 06/27/21 15:22 06/27/21 16:47 06/27/21 19:35 Temperature 36.2 C L Pulse Rate 99 92 Respiratory Rate 18 20 Blood Pressure 137/72 Pulse Oximetry 100 96 06/27/21 19:42 06/27/21 19:44 06/27/21 20:00 Temperature Pulse Rate 93 Respiratory Rate 20 Blood Pressure Pulse Oximetry 94 93 06/27/21 21:26 06/28/21 00:54 06/28/21 01:31 Temperature 36.5 C Pulse Rate 86 76 91 Respiratory Rate 18 25 H 23 H Blood Pressure 134/63
[2021-06-28 14:47] LABS: Hematocrit 36.6 % (37.0-47.0); Mean Corpuscular HGB Conc 30.1 g/dl (32-36); Mean Corpuscular Hemoglobin 29.6 pg (26-34); Mean Corpuscular Volume 98.7 fl (80-100); Mean Platelet Volume 9.3 fl (7.4-10.4); Platelet Count Result 252 k/mm3 (150-375); Red Blood Count 3.71 M/mm3 (4.2-5.4); Red Cell Distribution Width 13.5 % (11.5-14.5); White Blood Count 8.3 K/mm3 (4.5-10.0)
[2021-06-28] MEDS: LATANOPROST 0.005% OP SOLN 2.5 ML BTL 1 DROP EACH EYE (17:06)
[2021-06-28] MEDS: predniSONE 20 MG, predniSONE 10 MG 30 MG PO (17:06)
[2021-06-28] MEDS: MEMANTINE 10 MG TABLET PO (17:07)
[2021-06-29] VITALS (12 sets, daily range): BP systolic 130–137; BP diastolic 62–69; PULSE 65–105; RESP 18–30; TEMP 35.9–36.7; O2SAT 95–98
[2021-06-29] MEDS: ALBUTEROL SULFATE NEB 2.5 MG/0.5 ML INH 5 MG INHALATION ×3 (02:25→14:45)
[2021-06-29] MEDS: IPRATROPIUM BR 0.02% INH SOLN 0.5 MG/2.5 ML VIAL INHALATION ×3 (02:25→14:45)
[2021-06-29 06:27] LABS: Hematocrit 36.1 % (37.0-47.0); Hemoglobin 10.6 g/dL (12.0-15.0); Mean Corpuscular HGB Conc 29.4 g/dl (32-36); Mean Corpuscular Volume 98.6 fl (80-100); Mean Platelet Volume 9.6 fl (7.4-10.4); Platelet Count Result 239 k/mm3 (150-375); Red Blood Count 3.66 M/mm3 (4.2-5.4); Red Cell Distribution Width 13.5 % (11.5-14.5); White Blood Count 5.5 K/mm3 (4.5-10.0)
[2021-06-29 06:52] LABS: Blood Urea Nitrogen 24 mg/dL (7-17); Calcium 9.9 mg/dL (8.4-10.2); Carbon Dioxide > 40 mmol/L (22-30); Chloride 96 mmol/L (98-107); Estimated CRCL calculation 61 ml/min; Estimated Glomerular Filt Rate > 60; Glucose 132 mg/dL (65-110); Potassium 4.2 mmol/L (3.4-5.0); Sodium 141 mmol/L (137-145)
[2021-06-29] MEDS: predniSONE 20 MG, predniSONE 10 MG 30 MG PO ×2 (09:27→17:11)
[2021-06-29] MEDS: ROSUVASTATIN 10 MG TABLET 20 MG PO (09:27)
[2021-06-29] MEDS: FERROUS SULFATE 324 MG TABLET PO (09:27)
[2021-06-29] MEDS: CHOLECALCIFEROL 1,000 UNITS TABLET 2000 UNITS PO (09:27)
[2021-06-29 14:31] LABS: Hematocrit 36.3 % (37.0-47.0); Hemoglobin 10.6 g/dL (12.0-15.0); Mean Corpuscular HGB Conc 29.2 g/dl (32-36); Mean Corpuscular Hemoglobin 28.8 pg (26-34); Mean Corpuscular Volume 98.6 fl (80-100); Mean Platelet Volume 9.4 fl (7.4-10.4); Platelet Count Result 275 k/mm3 (150-375); Red Blood Count 3.68 M/mm3 (4.2-5.4); Red Cell Distribution Width 13.6 % (11.5-14.5); White Blood Count 8.8 K/mm3 (4.5-10.0)
--- NOTE | 2021-06-29 14:40 | PM.IMPN ---
Progress Note: A&P Assessment and Plan (1) Acute on chronic respiratory failure with hypoxia and hypercapnia: Code(s): J96.21 - Acute and chronic respiratory failure with hypoxia; J96.22 - Acute and chronic respiratory failure with hypercapnia Status: Acute Assessment and Plan: BIPAP PRN On oxygen in the day Continues on 2.5 L Wean as tolerated to keep sats >92% (2) COPD (chronic obstructive pulmonary disease): Qualifiers: COPD type: unspecified COPD Qualified Code(s): J44.9 - Chronic obstructive pulmonary disease, unspecified Code(s): J44.9 - Chronic obstructive pulmonary disease, unspecified Status: Acute Assessment and Plan: S/p IV solumedrol, Will change to po steroids, to taper Continue current treatment for another 1-2 days (3) Opacities of both lungs present on chest x-ray: Code(s): R91.8 - Other nonspecific abnormal finding of lung field Status: Acute Assessment and Plan: PNEUMONIA LIKELY Continue Azithromycin and ceftriaxone (4) Gait instability: Code(s): R26.81 - Unsteadiness on feet Status: Acute Assessment and Plan: PT/OT (5) Dementia: Qualifiers: Dementia type: unspecified type Dementia behavioral disturbance: without behavioral disturbance Qualified Code(s): F03.90 - Unspecified dementia without behavioral disturbance Code(s): F03.90 - Unspecified dementia without behavioral disturbance Status: Acute Assessment and Plan: Continue memantine, chronic and stable Subjective Date/time seen: 06/29/21 14:41 Interval history: 85-year-old female former smoker with COPD and oxygen dependence was admitted June 25 with increased dyspnea and hypercarbia as well as hypoxemia. 06/26 visit: Feels much better. Tolerated diet. On nasal cannula. One ask if she needed anything she replied, A stack of $100 bills. Denied chest pain or shortness of breath at rest. Admits the dyspnea on exertion with minimal exertion. Denied GI or complaints. 06/27: pt seen and evaluated; labs, vs, diagnostic reports reviewed 06/28: pt seen this a.m.; confused; pt was did not rest well last evening; according to nursing staff 06/29 pt pleasantly confused on oxygen now off BIPAP Review of Systems Review of Systems: All systems reviewed & are unremarkable except as noted in HPI and below Exam Narrative: GENERALLY: elderly lady pleasantly confused CHEST: Coarse breath sounds throughout with scattered crackles HEART: NL S1/S2, regular, no murmur ABDOMEN: BS+, soft, nontender, no mass, no bruits EXTREMITIES: No cyanosis, edema, or clubbing NEUROLOGIC: CN intact and symmetric to inspection. MUSCULOSKELETAL: Tone and strength symmetric. PSYCH: Alert. Oriented to person. Pleasant and cooperative. Objective Data Vital Signs Vital Signs: Vital Signs - 24 hr 06/28/21 20:00 06/28/21 20:59 06/28/21 21:03 Temperature Pulse Rate 92 72 Respiratory Rate 20 28 H Blood Pressure Pulse Oximetry 100 94 06/28/21 21:10 06/28/21 22:00 06/29/21 02:25 Temperature 36.3 C L Pulse Rate 90 98 74 Respiratory Rate 20 18 21 H Blood Pressure 121/74 Pulse Oximetry 100 96 06/29/21 02:37 06/29/21 06:00 06/29/21 08:36 Temperature 35.9 C L Pulse Rate 90 65 82 Respiratory Rate 20 18 18 Blood Pressure 131/62 Pulse Oximetry 98 98 06/29/21 09:25 06/29/21 14:07 06/29/21 14:09 Temperature 36.1 C L Pulse Rate 105 H Respiratory Rate 22 H Blood Pressure 130/69 Pulse Oximetry 97 98 98 Intake/Output Intake/Output: Intake & Output 06/26/21 06/27/21 06/28/21 06/29/21 23:59 23:59 23:59 23:59 Intake Total 520 850 770 440 Output Total 525 200 800 0 Balance -5 650 -30 440 Meds/Results Medications: Active Medications Generic Name Dose Route Start Last Admin Trade Name Freq PRN Reason Stop Dose Admin Acetaminophen 1,000 mg 06/26/21 04:32 06/27/21 08:49 Acetam
--- NOTE | 2021-06-29 14:43 | PC.NURSE ---
On 06/29/21, the student, Marjorie Padilla, provided care and completed [facility] documentation on this patient. I have reviewed the student's documentation and agree with the findings.
[2021-06-29] MEDS: LATANOPROST 0.005% OP SOLN 2.5 ML BTL 1 DROP EACH EYE (17:11)
[2021-06-29] MEDS: MEMANTINE 10 MG TABLET PO (17:11)
[2021-06-29] MEDS: ACETAMINOPHEN 500 MG TABLET 1000 MG PO (17:15)
[2021-06-30] VITALS (7 sets, daily range): BP systolic 140; BP diastolic 88; PULSE 76–92; RESP 18–30; TEMP 36.1; O2SAT 96–99
[2021-06-30] MEDS: ALBUTEROL SULFATE NEB 2.5 MG/0.5 ML INH 5 MG INHALATION ×2 (02:20→09:40)
[2021-06-30] MEDS: IPRATROPIUM BR 0.02% INH SOLN 0.5 MG/2.5 ML VIAL INHALATION ×2 (02:20→09:40)
[2021-06-30] MEDS: CHOLECALCIFEROL 1,000 UNITS TABLET 2000 UNITS PO (08:54)
[2021-06-30] MEDS: FERROUS SULFATE 324 MG TABLET PO (08:55)
[2021-06-30] MEDS: predniSONE 20 MG, predniSONE 10 MG 30 MG PO (08:55)
[2021-06-30] MEDS: ROSUVASTATIN 10 MG TABLET 20 MG PO (08:55)
[2021-06-30] MEDS: BUDESONIDE RESPULE NEB 0.5 MG/2 ML AMP INHALATION (09:40)
--- NOTE | 2021-06-30 11:21 | PM.DS ---
DS: Admitting Diagnosis Discharge Date 07/02/2021 Admitting Diagnosis Shortness of breath DS: Discharge Diagnosis Discharge Diagnosis (1) Acute on chronic respiratory failure with hypoxia and hypercapnia: Code(s): J96.21 - Acute and chronic respiratory failure with hypoxia; J96.22 - Acute and chronic respiratory failure with hypercapnia Status: Acute Assessment and Plan: BIPAP PRN On oxygen in the day Continues on 2.5 L Which is her baseline (2) COPD (chronic obstructive pulmonary disease): Qualifiers: COPD type: unspecified COPD Qualified Code(s): J44.9 - Chronic obstructive pulmonary disease, unspecified Code(s): J44.9 - Chronic obstructive pulmonary disease, unspecified Status: Acute Assessment and Plan: S/p IV solumedrol Will change to po steroids, to taper (3) Opacities of both lungs present on chest x-ray: Code(s): R91.8 - Other nonspecific abnormal finding of lung field Status: Acute Assessment and Plan: PNEUMONIA LIKELY Sp Azithromycin and ceftriaxone iv for 5 days. Off Abx now. Pt feels much better stable for discharge (4) Gait instability: Code(s): R26.81 - Unsteadiness on feet Status: Acute Assessment and Plan: PT/OT (5) Dementia: Qualifiers: Dementia behavioral disturbance: without behavioral disturbance Dementia type: unspecified type Qualified Code(s): F03.90 - Unspecified dementia without behavioral disturbance Code(s): F03.90 - Unspecified dementia without behavioral disturbance Status: Acute Assessment and Plan: Continue memantine, chronic and stable DS: Summary Hospital Course Hospital Course: 85-year-old female former smoker with COPD and oxygen dependence was admitted June 25 with increased dyspnea and hypercarbia as well as hypoxemia. 06/26 visit: Feels much better. Tolerated diet. On nasal cannula. One ask if she needed anything she replied, A stack of $100 bills. Denied chest pain or shortness of breath at rest. Admits the dyspnea on exertion with minimal exertion. Denied GI or complaints. 06/27: pt seen and evaluated; labs, vs, diagnostic reports reviewed 06/28: pt seen this a.m.; confused; pt was did not rest well last evening; according to nursing staff 06/29 pt pleasantly confused on oxygen pt back to her baseline 2.5 liters o oxygen in the day Time Spent with Patient Time attestation: Total time spent providing and/or coordinating discharge services:40 minutes on day of discharge Exam Narrative: GENERALLY: elderly lady pleasantly confused CHEST: clear lung kevin HEART: NL S1/S2, regular, no murmur ABDOMEN: BS+, soft, nontender, no mass, no bruits EXTREMITIES: No cyanosis, edema, or clubbing NEUROLOGIC: CN intact and symmetric to inspection. MUSCULOSKELETAL: Tone and strength symmetric. PSYCH: Alert. Oriented to person. Pleasant and cooperative. DS: Data Data Completed and Pending Labs on day of discharge: Labs from last 24 hours 06/29/21 14:16 WBC 8.8 RBC 3.68 L Hgb 10.6 L Hct 36.3 L MCV 98.6 MCH 28.8 MCHC 29.2 L RDW 13.6 Plt Count 275 MPV 9.4 Discharge Plan Discharge Attending physician on discharge: Kathy Mills Consulting providers: Sidney Ramirez ; Jose Angel Galvan ; Rashad Hoyos ; Jossy Christian Discharging Clinician: Kathy Mills Anticipated Discharge Date/Time: 06/30/21 11:19 Patient Disposition: SNF Activity: as tolerated Diet: regular Discharge Instructions: continue with 2.5 liters of oxygen continuously Patient Instructions: COPD (Chronic Obstructive Pulmonary Disease) (DC), Pneumonia (DC) Stand Alone Forms: General Discharge Information Follow-up/Referrals: Presley,Alana Llanes, [employer] [Primary Care Provider] - Discharge Medications: New prednisone 10 mg Tablet See Taper mg PO BIDWM Qty: 60 RF: 0 Continued cholecal
== END 2021-06-30 13:05 | DRG 193 ==
LOC: ANHED 06-26 00:49 → ANHIMU 06-26 01:18 → ANH3MEDSUR 06-27 14:52 → ANHIMU 07-01 13:39
PROVIDERS: Internal Medicine; Nurse Practitioner; Nurse Practitioner Adult Health; Admitting Provider Internal Medicine; Emergency Provider Emergency Medicine; PCP Nurse Practitioner Family; Visit Provider Family Medicine
DX: J18.9 Pneumonia, unspecified organism (principal); J96.22 Acute and chronic respiratory failure with hypercapnia; J96.21 Acute and chronic respiratory failure with hypoxia; Z23 Encounter for immunization; J43.9 Emphysema, unspecified; R91.8 Other nonspecific abnormal finding of lung field; S42.001D Fracture of unspecified part of right clavicle, subsequent encounter for fracture with routine healing; W19.XXXD Unspecified fall, subsequent encounter; Z85.038 Personal history of other malignant neoplasm of large intestine; Y95 Nosocomial condition; F32.A Depression, unspecified; E78.00 Pure hypercholesterolemia, unspecified; G70.00 Myasthenia gravis without (acute) exacerbation; M81.0 Age-related osteoporosis without current pathological fracture; Z87.891 Personal history of nicotine dependence; I48.91 Unspecified atrial fibrillation; F03.90 Unspecified dementia, unspecified severity, without behavioral disturbance, psychotic disturbance, mood disturbance, and anxiety; Z99.81 Dependence on supplemental oxygen; R29.6 Repeated falls; R26.81 Unsteadiness on feet
CPT/HCPCS: 36415; 36600; 71045; 71275; 80048; 80053; 82375; 82805; 83050; 83880; 84484; 85025; 85027; 85380; 85610; 85730; 90471; 90653; 93005; 94002; 94003; 94640; 96365; 96367; 96375; 97161; 97166; 99285; A9270; G0008; G0378; J0131; J0456; J0696; J2920; J2930; J7512; Q9967

== ENCOUNTER 2021-07-04 20:28 | Emergency (ER) | payer MEDICARE, SELFPAY ==
--- NOTE | ~2021-07-04 | CT_ITS ---
EXAMINATION: CT brain wo con DATE: 07/04/2021 21:15 INDICATION: Status post fall. Bruising to before head. TECHNIQUE: Computed tomography (CT) of the head was performed without intravenous contrast. The dose- length product was 681.00 mGy-cm. Automated exposure control and iterative reconstruction technique w ere employed. COMPARISON: CT dated 06/18/2021 FINDINGS: No acute intracranial hemorrhage, infarction, mass or mass effect. No ventriculomegaly or m idline shift. Basilar cisterns are patent. There are scattered mild periventricular and subcortical w devyn matter changes, most likely related to small vessel ischemic disease (microangiopathy). No depre ssed skull fractures. Paranasal sinuses and mastoids are pneumatized. There is intracranial atheroscl erosis. IMPRESSION: 1. No acute intracranial abnormality. 2: Chronic age-related findings. Reviewed, dictated and finalized at location A. ING MANAGEMENT OFFICER
[2021-07-04 20:34] VITALS: BP 142/72; PULSE 81; RESP 16; O2SAT 99
--- NOTE | 2021-07-04 22:34 | ED.FALL ---
HPI - Fall General Chief Complaint: Fall Stated Complaint: unwitnessed glf - bruising to rt eyebrow Time Seen by Provider: 07/04/21 20:37 Source: EMS and RN notes reviewed Mode of arrival: EMS Limitations: dementia History of Present Illness HPI Narrative: 85 year old female with PMH dementia sent from [facility] for unwitnessed fall and bruising to R forehead. Patient with no complaints, alert, active, moving all extremities, oriented x 1; NAD. Related Data Home Medications Medication Instructions Recorded Confirmed budesonide 0.5 mg/2 mL suspension 0.5 mg INHALATION BID ml 08/14/19 06/26/21 for nebulization cholecalciferol (vitamin D3) 50 2,000 unit PO DAILY 08/14/19 06/26/21 mcg (2,000 unit) tablet memantine 10 mg tablet 10 mg PO QPM 02/21/21 06/26/21 acetaminophen 1,000 mg PO Q8H PRN 06/26/21 06/26/21 Allergies Allergy/AdvReac Type Severity Reaction Status Date / Time No Known Allergies Allergy Verified 06/22/21 19:56 Review of Systems Review of Systems: ROS unobtainable: Yes other (dementia) PMFSH Past Medical History Medical History Anxiety Chronic respiratory failure with hypoxia Colon cancer COPD (chronic obstructive pulmonary disease) Depression High cholesterol Myasthenia gravis Osteoporosis Surgical History Surgical History History of appendectomy History of cholecystectomy History of colon surgery For colon cancer. Family History Family History Mother Cerebrovascular accident Father Heart disease Social History Social History Social History: The patient is . She lives in her own home in [place]. She has 4 children. One of her daughters frequently stays at home with her as she gets anxious at nighttime. A registered travel nurse does, help throughout the day. She smoked < half pack of cigarettes for several years in her teens and 20s. No alcohol or drug use. Her daughter Mary is her healthcare power of county attorney. The patient wishes to be a full code. Years smoked: 20 Smoking status: Former smoker Tobacco type: cigarettes Second hand tobacco smoke exposure: Yes Smoking end date: 08/13/62 Alcohol intake: never Substance use: never Gender identity (if verbalized by the patient): Female Spiritual care concerns: No Agree to blood products: Yes Exam Narrative: General: alert, afebrile, active, NAD Head: normocephalic, Right forehead contusion Eyes: EOMI bilaterally, anicteric, no injection ENT: moist mucous membranes, oropharynx patent, no rhinorrhea Neck: supple, trachea midline, no JVD Chest: equal chest rise bilaterally, no chest wall trauma noted Lungs: clear to auscultation bilaterally, respirations unlabored CV: regular rate, no ELZA B, calf size equal bilaterally Back: no lumbar bony tenderness. paraspinal muscles without spasm EXT: no deformity noted, moving all extremities equally Skin: warm, dry, no pallor Neuro: alert, oriented x 1; CN 2-12 grossly intact, no dysarthria Psych: affect appropriate, though content normal Course Course Emergency Course: Patient from [facility] with unwitnessed fall prior to arrival arrives alert active no apparent distress speaking full sentences without difficulty, alert and oriented x1. Noted 3 cm contusion to right eyebrow no fluctuance no orbital step-off is equal and reactive EOMI bilaterally CT brain without acute process. Patient with no complaints, no headache no lethargy no vomiting plan is to send patient back to [facility]. Vital Signs Vital signs: Vital Signs Pulse Rate 81 07/04/21 20:34 Respiratory Rate 16 07/04/21 20:34 Blood Pressure 142/72 H 07/04/21 20:34 Pulse Oximetry 99 07/04/21 20:34 Pulse Rate 81 07/04/21 20:34 Respiratory Rat
--- NOTE | 2021-07-04 22:43 | PC.NURSE ---
Report called to [facility] at [facility] called to take pt back.
[2021-07-04 22:55] VITALS: BP 136/73; PULSE 71; RESP 16; O2SAT 100
[2021-07-05 01:18] VITALS: BP 145/64; PULSE 71; RESP 16; TEMP 36.9; O2SAT 98
[2021-07-05 03:12] VITALS: BP 153/88; PULSE 71; RESP 16; O2SAT 99
== END 2021-07-05 03:20 ==
PROVIDERS: Emergency Provider Emergency Medicine; PCP Nurse Practitioner Family
DX: S00.83XA Contusion of other part of head, initial encounter (principal); W19.XXXA Unspecified fall, initial encounter; F41.9 Anxiety disorder, unspecified; F32.9 Major depressive disorder, single episode, unspecified; J44.9 Chronic obstructive pulmonary disease, unspecified; Z85.038 Personal history of other malignant neoplasm of large intestine
CPT/HCPCS: 70450; 99284